=== PATIENT | female | born 1950 ===

== ENCOUNTER → 2022-01-05 16:06 | Outpatient (BNVA) | payer OTHER, SELFPAY | PROVIDERS: Visit Provider Nurse Practitioner Family | DX: G20 Parkinson's disease (principal) | CPT/HCPCS: 99212 ==

== ENCOUNTER → 2022-03-10 15:22 | Outpatient (BNVA) | payer OTHER, SELFPAY | PROVIDERS: PCP Internal Medicine; Visit Provider Nurse Practitioner Family | DX: G20 Parkinson's disease (principal); Z79.899 Other long term (current) drug therapy | CPT/HCPCS: 99212 ==

== ENCOUNTER → 2022-08-02 15:35 | Outpatient (BNVA) | payer OTHER, SELFPAY | PROVIDERS: PCP Internal Medicine; Visit Provider Nurse Practitioner Family | DX: G20 Parkinson's disease (principal); Z91.81 History of falling | CPT/HCPCS: 99212 ==

== ENCOUNTER → 2022-11-08 15:17 | Outpatient (BNVA) | payer OTHER, SELFPAY | PROVIDERS: PCP Internal Medicine; Visit Provider Nurse Practitioner Family | DX: G20 Parkinson's disease (principal); Z79.899 Other long term (current) drug therapy | CPT/HCPCS: 99212 ==

== ENCOUNTER → 2023-03-28 13:15 | Outpatient (BNVA) | payer OTHER, SELFPAY | PROVIDERS: PCP Internal Medicine; Visit Provider Nurse Practitioner Family | DX: G20 Parkinson's disease (principal); F02.82 Dementia in other diseases classified elsewhere, unspecified severity, with psychotic disturbance | CPT/HCPCS: 99212 ==

== ENCOUNTER 2023-08-01 14:55 | Outpatient (AMB) | payer MEDICARE, MEDICAID, SELFPAY ==
--- NOTE | 2023-08-01 14:58 | MHC.OFFVIS ---
Intake Vital Signs 08/01/23 15:03 Height 4 ft 11 in BP 124/68 Blood Pressure Location Rt brachial Position Sitting Pulse 87 Pulse Source Pulse Oximeter Pulse Oximetry (%) 100 Oxygen Delivery Method Room Air Intake Visit Reasons: 4m follow up Intake Note: Pt presents today for fup , daughter states mom loses train of thought easily and has been drooling more. Allergies citalopram Allergy (Unknown, Verified 08/01/23 15:06) Unknown pollen extracts Allergy (Unknown, Verified 08/01/23 15:06) Unknown Medication List - Last Reconciled 08/01/23 by MARIOLA De Paz acetaminophen 325 mg PO QID PRN bisacodyl (Dulcolax (bisacodyl)) 10 mg [place] DAILY PRN bupropion HCl 300 mg PO DAILY carbidopa-levodopa 36.25-145 mg ER (Rytary) 2 caps orally 5 times a day; divide evenly over waking hours cholecalciferol (vitamin D3) 1,250 mcg PO QWEEK ketotifen fumarate 0.025%(0.035%) 0 drps ophthalmic (eye) levothyroxine 112 mcg PO DAILY lidocaine 4% (Aspercreme (lidocaine)) 1 patch topical DAILY PRN lutein-zeaxanthin 25-5 mg (Ocuvite Lutein) caps PO DAILY magnesium hydroxide 1,200 mg PO DAILY PRN magnesium hydroxide (Milk of Magnesia) 30 mL PO DAILY PRN mirtazapine 15 mg PO BEDTIME olanzapine 7.5 mg PO BEDTIME olanzapine 5 mg PO DAILY pimavanserin (Nuplazid) 34 mg PO DAILY 30 days polyethylene glycol 3350 (Miralax) 17 grams PO DAILY potassium chloride ER 20 mEq PO DAILY rasagiline 1 mg PO DAILY sennosides (Senna Lax) 17.2 mg PO DAILY PRN temazepam 7.5 mg PO BEDTIME trazodone 50 mg PO BEDTIME HPI HPI Comments History of Present Illness Details 73-yr-old female presents for f/u visit, accompanied by her dtr. Pt continues to reside in a SNF. She still needs?assist w/ ADLs. Pt is having more drooling. States she has trouble swallowing, but denies coughing/choking. Dtr is needing to provide most meals- as pt either does not like the facility's food or thinks that the staff is tampering with her food. She is not moving as well, legs are heavier. Not walking very much. She has had some falls d/t trying to pick things up from the floor. She has reachers. She is still having hallucinations. She is having more memory issues, losing her train of thought more. Her mood is variable- had some increased depression/agittaion, per dtr, after her family viisited and left. Dtr thinks this is when her olanzapine does was changed from 5mg qam and 7.5mg qhs- to 15mg qam. She states she is not sleeping as well- able to fall asleep but not stay asleep. Her dtr has been trying to encourage her to participate in the activities- which pt is doing more. [facility] Surgical History No history of previous surgery Family History Father Cancer Mother Osteoporosis Social History Alcohol intake: never Patient Tobacco Use Status: Never used Tobacco Review of Systems Const All systems reviewed & are unremarkable except as noted in HPI and below Physical Exam Vital Signs: Last Vital Signs Pulse 87 08/01/23 15:03 BP 124/68 08/01/23 15:03 Pulse Ox 100 08/01/23 15:03 Oxygen Delivery Method Room Air 08/01/23 15:03 Const General: cooperative and no acute distress HEENT Head: Yes normocephalic Resp Effort & Inspection: normal respiratory effort and able to speak in complete sentences Neuro Other: Expression: Decreased expression and blink Voice: Soft Tremor: No tremor Tone: BUE rigidity Dyskinesia: None FFM: BUE bradykinesia Foot taps: BLE bradykinesia Gait: Sitting in w/c with stoop and tendency to lean to the left. Psych: Pleasant affect. Verbalized hallucinations- states she has scabs on her face and arms. 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 Continue Rasagiline 1mg qd. Trial adding Nourianz 20mg qd- in hopes this optimizes PD on-time (improve posture, reduce drooling, reduce cognitive s/s). Continue Zyprexa. Pt currently on 15mg qam- request PCP/psych at [facility] consider if this change has impacted pt's sleep difficulties. Continue Nuplazid 34mg qd. f/u in 3-4 months or sooner prn. Medications: New olanzapine 15 mg PO DAILY istradefylline (Nourianz) 20 mg PO DAILY 30 tabs 0RF Changed From mirtazapine 15 mg PO BEDTIME To mirtazapine 7.5 mg PO BEDTIME Coding Level of Care Code Est Pt Level 4 (99677) Diagnoses Parkinson's disease G20 Psychosis due to Parkinson's disease G20 Drooling K11.7 Falls W19.XXXA
[2023-08-01 15:03] VITALS: BP 124/68; PULSE 87; O2SAT 100
== END 2023-08-01 16:30 | disposition home or self-care (01) ==
PROVIDERS: Visit Provider Nurse Practitioner Family
DX: G20 Parkinson's disease (principal); K11.7 Disturbances of salivary secretion; R29.6 Repeated falls
CPT/HCPCS: 99214

== ENCOUNTER → 2023-08-01 14:55 | Outpatient (BNVA) | payer MEDICARE, MEDICAID, SELFPAY | PROVIDERS: Visit Provider Nurse Practitioner Family | DX: G20 Parkinson's disease (principal); K11.7 Disturbances of salivary secretion; Z91.81 History of falling | CPT/HCPCS: 99212 ==

== ENCOUNTER 2024-02-08 13:27 | Outpatient (AMB) | payer MEDICARE, MEDICAID, SELFPAY ==
--- NOTE | 2024-02-08 13:29 | MHC.OFFVIS ---
Intake Vital Signs 02/08/24 13:30 Height 4 ft 11 in Weight 126 lb BMI 25.4 BP 114/72 Blood Pressure Location Rt brachial Position Sitting Pulse 78 Pulse Source Pulse Oximeter Intake Visit Reasons: 4 mo f/up for Parkinson-Conf Intake Note: Patient presents for 4 month follow up. patient here for follow up still having hallicinations. Allergies citalopram Allergy (Unknown, Verified 02/08/24 13:35) Unknown pollen extracts Allergy (Unknown, Verified 02/08/24 13:35) Unknown Medication List - Last Reconciled 02/08/24 by MARIOLA De Paz acetaminophen 325 mg PO QID PRN bisacodyl (Dulcolax (bisacodyl)) 10 mg [place] DAILY PRN bupropion HCl 300 mg PO DAILY carbidopa-levodopa 36.25-145 mg ER (Rytary) 2 caps orally 5 times a day; divide evenly over waking hours cholecalciferol (vitamin D3) 1,250 mcg PO QWEEK istradefylline (Nourianz) 20 mg PO DAILY ketotifen fumarate 0.025%(0.035%) 0 drps ophthalmic (eye) levothyroxine 112 mcg PO DAILY lidocaine 4% (Aspercreme (lidocaine)) 1 patch topical DAILY PRN lutein-zeaxanthin 25-5 mg (Ocuvite Lutein) caps PO DAILY magnesium hydroxide 1,200 mg PO DAILY PRN magnesium hydroxide (Milk of Magnesia) 30 mL PO DAILY PRN mirtazapine 7.5 mg PO BEDTIME olanzapine 7.5 mg PO BEDTIME olanzapine 5 mg PO DAILY olanzapine 15 mg PO DAILY pimavanserin (Nuplazid) 34 mg PO DAILY 30 days polyethylene glycol 3350 (Miralax) 17 grams PO DAILY potassium chloride ER 20 mEq PO DAILY rasagiline 1 mg PO DAILY sennosides (Senna Lax) 17.2 mg PO DAILY PRN temazepam 7.5 mg PO BEDTIME trazodone 50 mg PO BEDTIME HPI HPI Comments History of Present Illness Details 74-yr-old female presents for f/u visit. Pt accompanied by her dtr. Pt is feeling better with addition of Nourianz. She still needs?assist w/ ADLs. Pt is having more drooling- it is bothersome. States she has trouble swallowing, but denies coughing/choking. Pt is eating some of the facility meals. Taking more ensure. Has snacks. Eating some meals from her dtr. She is moving a bit better. She had an interval fall. Is now doing PT and being fitted for a new w/c. Denies constipation. She is still having hallucinations- stable. She has some memory issues, losing her train of thought more. However, she is picking up more [place]. Her mood is better now- recently was feeling frustrated that her medications were not curing her PD and so did not want to take her meds- but this is better now. She states she is not always sleeping well- able to fall asleep but not stay asleep. Pt is participating a bit more in the activities at the [facility] Medical History (Updated 03/03/24 @ 19:52 by MARIOLA De Paz) Parkinson's disease Surgical History No history of previous surgery Family History Father Cancer Mother Osteoporosis Social History Alcohol intake: never Patient Tobacco Use Status: Never used Tobacco Review of Systems Const All systems reviewed & are unremarkable except as noted in HPI and below Physical Exam Vital Signs: Last Vital Signs Pulse 78 02/08/24 13:30 BP 114/72 02/08/24 13:30 BMI result Body Mass Index 25.4 Const General: cooperative and no acute distress Resp Effort & Inspection: normal respiratory effort and able to speak in complete sentences Neuro Other: General: Alert, responsive, oriented to person Expression: Decreased expression and blink Voice: Soft Drooling: Moderate degree of uncontrolled drooling from left side of mouth. Tremor: No tremor Tone: BUE rigidity Dyskinesia: None FFM: BUE bradykinesia Foot taps: BLE bradykinesia Gait: Sitting in w/c with stoop and tendency to lean to the left. Psych: Pleasant affect. Patient does not verbalize any hallucinations today. 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 Continue Rytary 36.25-145mg 2 caps 5 times a day (at 6:30am, 11am, 3:30pm, 7pm, and 11:30pm). Continue Rasagiline 1mg qd. Continue Nourianz 20mg qd Continue Zyprexa 15mg qd Continue Nuplazid 34mg qd. f/u in 4 months or sooner prn. Medications: Changed From istradefylline 20 mg PO DAILY 30 tabs 6RF To istradefylline (Nourianz) 20 mg PO DAILY 30 tabs 6RF 30 days Coding Level of Care Code Est Pt Level 4 (03238) Diagnoses Parkinson's disease without dyskinesia G20.A1 Psychosis due to Parkinson's disease G20 Drooling K11.7
[2024-02-08 13:30] VITALS: BP 114/72; PULSE 78; BMI 25.4
== END 2024-02-08 14:31 | disposition home or self-care (01) ==
LOC: HO.HSMS 13:27
PROVIDERS: PCP Internal Medicine; Visit Provider Nurse Practitioner Family
DX: G20.A1 Parkinson's disease without dyskinesia, without mention of fluctuations (principal); K11.7 Disturbances of salivary secretion
CPT/HCPCS: 99214

== ENCOUNTER → 2024-02-08 13:27 | Outpatient (BNVA) | payer MEDICARE, MEDICAID, SELFPAY | PROVIDERS: PCP Internal Medicine; Visit Provider Nurse Practitioner Family | DX: G20.A1 Parkinson's disease without dyskinesia, without mention of fluctuations (principal); F06.8 Other specified mental disorders due to known physiological condition; K11.7 Disturbances of salivary secretion; Z79.899 Other long term (current) drug therapy | CPT/HCPCS: 99212 ==

== ENCOUNTER 2024-04-29 10:56 | Outpatient (AMB) | payer MEDICARE, MEDICAID, SELFPAY ==
--- NOTE | 2024-04-29 11:02 | A.OFFVIS_ITS ---
Vital Signs 04/29/24 11:04 Height 4 ft 11 in Weight 125 lb BMI 25.2 BP 126/70 Blood Pressure Location Rt brachial Position Sitting Respiration 16 Pulse 80 Pulse Source Palpation Intake Visit Reasons: Botox - Confirmed Intake Note: Pt presents for first Botox injection for sialorrhea. Case Making Machine Operator Required: No Case Making Machine Operator Name: Talon- daughter Allergies citalopram Allergy (Unknown, Verified 04/29/24 11:03) Unknown pollen extracts Allergy (Unknown, Verified 04/29/24 11:03) Unknown Medication List - Last Reconciled 04/29/24 by Mary Henry MD acetaminophen 325 mg PO QID PRN bisacodyl (Dulcolax (bisacodyl)) 10 mg [place] DAILY PRN bupropion HCl XL 300 mg PO DAILY carbidopa-levodopa 36.25-145 mg ER (Rytary) 2 caps orally 5 times a day; divide evenly over waking hours cholecalciferol (vitamin D3) 1,250 mcg PO QWEEK istradefylline (Nourianz) 20 mg PO DAILY 30 days ketotifen fumarate 0.025%(0.035%) 0 drps ophthalmic (eye) levothyroxine 112 mcg PO DAILY lidocaine 4% (Aspercreme (lidocaine)) 1 patch topical DAILY PRN lutein-zeaxanthin 25-5 mg (Ocuvite Lutein) caps PO DAILY magnesium hydroxide 1,200 mg PO DAILY PRN magnesium hydroxide (Milk of Magnesia) 30 mL PO DAILY PRN mirtazapine 7.5 mg PO BEDTIME olanzapine 7.5 mg PO BEDTIME olanzapine 5 mg PO DAILY olanzapine 15 mg PO DAILY onabotulinumtoxinA (Botox) 100 units IM ONCE 12 weeks pimavanserin (Nuplazid) 34 mg PO DAILY 30 days polyethylene glycol 3350 (Miralax) 17 grams PO DAILY potassium chloride ER 20 mEq PO DAILY rasagiline 1 mg PO DAILY sennosides (Senna Lax) 17.2 mg PO DAILY PRN temazepam 7.5 mg PO BEDTIME trazodone 50 mg PO BEDTIME HPI Comments Details: 74y/o male comes for treatment of sialorrhea with botox Botulinum toxin type A Lot no [id number] Exp 04/2026 was diluted with 1 cc of normal saline at a concentration of 10 units in 0.1 cc. Side effects were discussed and an informed consent was obtained. Bilateral parotid glands 30 units each Bilateral Submandibular glands 20 units ecah Total uses 100 units PFSH Medical History Parkinson's disease Surgical History No history of previous surgery Family History Father Cancer Mother Osteoporosis Social History Alcohol intake: never Patient Tobacco Use Status: Never used Tobacco Physical Exam Vital Signs: Last Vital Signs Pulse 80 04/29/24 11:04 Resp 16 04/29/24 11:04 BP 126/70 04/29/24 11:04 BMI result Body Mass Index 25.2 Const General: cooperative and no acute distress Neuro Other: General: Alert, responsive, oriented to person Expression: Decreased expression and blink Voice: Soft Drooling: Moderate degree of uncontrolled drooling from left side of mouth. Tremor: No tremor Tone: BUE rigidity Dyskinesia: None FFM: BUE bradykinesia Foot taps: BLE bradykinesia Gait: Sitting in w/c with stoop and tendency to lean to the left. Psych: Pleasant affect. Patient does not verbalize any hallucinations today. Office Procedures Botulinum toxin Injection 98033 - Salivary Glands Procedure code (CPT) selection complete Office Meds onabotulinumtoxinA 100 unit solution for injection Performing Provider: Mary Henry MD Performing Location: [facility] Administered by: Mary Henry MD on 04/29/24 15:49 Dose Route Admin Location Dispensed Lot Number Expiration Date [facility] [employer] 100 unit subcut 100 units [id number] 04/27/26 6631-6648-42 [employer] Comments: see hpi Assessment & Plan Assessment & Plan (1) Parkinson's disease without dyskinesia: Code(s): G20.A1 - Parkinson's disease without dyskinesia, without mention of fluctuations Category: Medical (2) Sialorrhea: Code(s): K11.7 - Disturbances of salivary secretion Category: Medical Plan Patient tolerated the procedure well SHe will call with any side effects Orders: Orders AMB Botulinum toxin Injection Today K11.7 - Disturbances of salivary secretion Medications: New onabotulinumtoxinA 100 units subcut ONCE 1 ea 0RF sialorhea K11.7 - Disturbances of salivary secretion Coding Level of Care Code Est Pt Level 1 (21017) Diagnoses Parkinson's disease without dyskinesia G20.A1 Sialorrhea K11.7 CPT Codes Botox Injection - Botox1: 51668 - Salivary Glands ([id number])
[2024-04-29 11:04] VITALS: BP 126/70; PULSE 80; RESP 16; BMI 25.2
== END 2024-04-29 11:30 | disposition home or self-care (01) ==
PROVIDERS: PCP Internal Medicine; Visit Provider Psychiatry & Neurology Neurology
DX: K11.7 Disturbances of salivary secretion (principal)
CPT/HCPCS: 64611

== ENCOUNTER → 2024-04-29 10:56 | Outpatient (BNVA) | payer MEDICARE, MEDICAID, SELFPAY | PROVIDERS: PCP Internal Medicine; Visit Provider Psychiatry & Neurology Neurology | DX: G20.A1 Parkinson's disease without dyskinesia, without mention of fluctuations (principal); K11.7 Disturbances of salivary secretion | CPT/HCPCS: 64611; 99211; J0585 ==

== ENCOUNTER 2024-06-19 14:25 | Outpatient (AMB) | payer MEDICARE, MEDICAID, SELFPAY ==
[2024-06-19 14:37] VITALS: BP 118/82; PULSE 87; O2SAT 100
--- NOTE | 2024-06-19 14:37 | A.OFFVIS_ITS ---
Vital Signs 06/19/24 14:37 Height 4 ft 11 in BP 118/82 Blood Pressure Location Rt brachial Position Sitting Pulse 87 Pulse Source Pulse Oximeter Pulse Oximetry (%) 100 Oxygen Delivery Method Room Air Intake Visit Reasons: Follow up Parkinson - LVM Intake Note: Patient presents for follow up parkinsons. patient states she feel good some days. Allergies citalopram Allergy (Unknown, Verified 06/19/24 14:40) Unknown pollen extracts Allergy (Unknown, Verified 06/19/24 14:40) Unknown HPI Comments Details: 74-yr-old female presents for f/u visit, accompanied by her dtr. Pt denies any significant interval medical history changes. Pt has moved to a new memory care [facility]. The 1st few dyas went really well, but she has been having more hallucinations. Dtr notes pt is self-isolating more, tending to eat in her room alone. She still needs?assist w/ ADLs. Pt states her drooling is better since starting Botox for siallorhea. She was biting her cheek at times- not sure if r/t the Botox. Pt is eating some of the new facility meals. Taking more ensure. Has snacks. Eating some meals from her dtr. She is moving a bit better. Did work w/ PT and OT for a few weeks. Denies falls. Denies constipation. She states her memory is good. Dtr feels that pt has some STM lapses. She states her sleep varies- some nights good but other nights not as good- not sure why. Pt is not going to the new facility's activities. [facility] Medical History (Updated 04/29/24 @ 15:49 by Mary Henry MD) Sialorrhea Parkinson's disease Surgical History No history of previous surgery Family History Father Cancer Mother Osteoporosis Social History Alcohol intake: never Patient Tobacco Use Status: Never used Tobacco Review of Systems Const All systems reviewed & are unremarkable except as noted in HPI and below Physical Exam Vital Signs: Last Vital Signs Pulse 87 06/19/24 14:37 BP 118/82 06/19/24 14:37 Pulse Ox 100 06/19/24 14:37 Oxygen Delivery Method Room Air 06/19/24 14:37 Const General: cooperative and no acute distress Resp Effort & Inspection: normal respiratory effort and able to speak in complete sentences Neuro Other: General: Alert, responsive, oriented to person Expression: Decreased expression and blink. Mild left facial droop. Voice: Soft Drooling: No visible drooling Tremor: No tremor Tone: BUE rigidity Dyskinesia: None FFM: BUE bradykinesia Foot taps: BLE bradykinesia Gait: Sitting in w/c with stoop and tendency to lean to the left. Psych: Pleasant affect. Patient verbalizes mild hallucinations- feels there is something on her skin that is not there. 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 Encouraged her to eat meals in the common dining room but pt declines. Monitor hallucinations- likely increased d/t recent move, but if persists, will consider adjusting her antipsychotic tx regimen. Continue Botox, as pt has had good reduction in bothersome degree of sialorrhea. Continue Rytary 36.25-145mg 2 caps 5 times a day (at 6:30am, 11am, 3:30pm, 7pm, and 11:30pm). Continue Rasagiline 1mg qd. Continue Nourianz 20mg qd Continue Zyprexa 15mg qd Continue Nuplazid 34mg qd. f/u in 4-6 months or sooner prn. Coding Level of Care Code Est Pt Level 4 (02130) Diagnoses Parkinson's disease without dyskinesia G20.A1 Psychosis due to Parkinson's disease G20 Sialorrhea K11.7
== END 2024-06-19 15:52 | disposition home or self-care (01) ==
PROVIDERS: PCP Internal Medicine; Visit Provider Nurse Practitioner Family
DX: G20.A1 Parkinson's disease without dyskinesia, without mention of fluctuations (principal); K11.7 Disturbances of salivary secretion
CPT/HCPCS: 99214

== ENCOUNTER → 2024-06-19 14:25 | Outpatient (BNVA) | payer MEDICARE, MEDICAID, SELFPAY | PROVIDERS: PCP Internal Medicine; Visit Provider Nurse Practitioner Family | DX: G20.A1 Parkinson's disease without dyskinesia, without mention of fluctuations (principal); K11.7 Disturbances of salivary secretion | CPT/HCPCS: 99212 ==

== ENCOUNTER 2024-07-30 09:01 | Outpatient (AMB) | payer MEDICARE, MEDICAID, SELFPAY ==
--- NOTE | 2024-07-30 09:05 | A.OFFVIS_ITS ---
Vital Signs 07/30/24 09:06 Height 4 ft 11 in BP 116/68 Blood Pressure Location Rt brachial Position Sitting Respiration 16 Pulse 64 Pulse Source Palpation Intake Visit Reasons: Botox Intake Note: Pt presents tot he office for Botox injections for sialorrhea. Analytics Developer Required: Yes Analytics Developer Services: Analytics Developer Present Analytics Developer Name: rApita Wilson CMA Allergies citalopram Allergy (Unknown, Verified 07/30/24 09:05) Unknown pollen extracts Allergy (Unknown, Verified 07/30/24 09:05) Unknown Medication List - Last Reconciled 07/30/24 by Mary Henry MD acetaminophen 325 mg PO QID PRN bisacodyl (Dulcolax (bisacodyl)) 10 mg [place] DAILY PRN bupropion HCl XL 300 mg PO DAILY carbidopa-levodopa 36.25-145 mg ER (Rytary) 2 caps orally 5 times a day; divide evenly over waking hours cholecalciferol (vitamin D3) 1,250 mcg PO QWEEK istradefylline (Nourianz) 20 mg PO DAILY 30 days ketotifen fumarate 0.025%(0.035%) 0 drps ophthalmic (eye) levothyroxine 112 mcg PO DAILY lidocaine 4% (Aspercreme (lidocaine)) 1 patch topical DAILY PRN lutein-zeaxanthin 25-5 mg (Ocuvite Lutein) caps PO DAILY magnesium hydroxide 1,200 mg PO DAILY PRN magnesium hydroxide (Milk of Magnesia) 30 mL PO DAILY PRN mirtazapine 7.5 mg PO BEDTIME olanzapine 7.5 mg PO BEDTIME olanzapine 5 mg PO DAILY olanzapine 15 mg PO DAILY onabotulinumtoxinA (Botox) 100 units IM ONCE 12 weeks pimavanserin (Nuplazid) 34 mg PO DAILY 30 days polyethylene glycol 3350 (Miralax) 17 grams PO DAILY potassium chloride ER 20 mEq PO DAILY rasagiline 1 mg PO DAILY sennosides (Senna Lax) 17.2 mg PO DAILY PRN temazepam 7.5 mg PO BEDTIME trazodone 50 mg PO BEDTIME HPI Comments Details: 74y/o male comes for treatment of sialorrhea with botox Botulinum toxin type A Lot no [id number] Exp 08/2026 was diluted with 1 cc of normal saline at a concentration of 10 units in 0.1 cc. Side effects were discussed and an informed consent was obtained. Bilateral parotid glands 30 units each Bilateral Submandibular glands 20 units each Total uses 100 units [facility] Medical History Sialorrhea Parkinson's disease Surgical History No history of previous surgery Family History Father Cancer Mother Osteoporosis Social History Alcohol intake: never Patient Tobacco Use Status: Never used Tobacco Physical Exam Vital Signs: Last Vital Signs Pulse 64 07/30/24 09:06 Resp 16 07/30/24 09:06 BP 116/68 07/30/24 09:06 Const General: cooperative and no acute distress Neuro Other: General: Alert, responsive, oriented to person Expression: Decreased expression and blink Voice: Soft Drooling: Moderate degree of uncontrolled drooling from left side of mouth. Tremor: No tremor Tone: BUE rigidity Dyskinesia: None FFM: BUE bradykinesia Foot taps: BLE bradykinesia Gait: Sitting in w/c with stoop and tendency to lean to the left. Psych: Pleasant affect. Patient does not verbalize any hallucinations today. Office Procedures Botulinum toxin Injection 79078 - Salivary Glands Procedure code (CPT) selection complete Office Meds onabotulinumtoxinA 100 unit solution for injection Performing Provider: Mary Henry MD Performing Location: [facility] [place] [facility] Administered by: Mary Henry MD on 07/30/24 10:00 Dose Route Admin Location Dispensed Lot Number Expiration Date [facility] Phone Screener 100 unit subcut 100 units [id number] 08/27/26 6629-8279-26 [employer] Comments: see HPI Assessment & Plan Assessment & Plan (1) Sialorrhea: Code(s): K11.7 - Disturbances of salivary secretion Category: Medical Plan Patient tolerated the procedure well she will call with any side effects Orders: Orders AMB Botulinum toxin Injection Today K11.7 - Disturbances of salivary secretion Medications: New onabotulinumtoxinA 100 units subcut ONCE 1 ea 0RF sialorhea K11.7 - Disturbances of salivary secretion Coding Level of Care Code Est Pt Level 1 (96245) Diagnoses Sialorrhea K11.7 CPT Codes Botox Injection - Botox1: 96638 - Salivary Glands ([id number])
[2024-07-30 09:06] VITALS: BP 116/68; PULSE 64; RESP 16
== END 2024-07-30 09:55 | disposition home or self-care (01) ==
PROVIDERS: PCP Internal Medicine; Visit Provider Psychiatry & Neurology Neurology
DX: K11.7 Disturbances of salivary secretion (principal)
CPT/HCPCS: 64611

== ENCOUNTER → 2024-07-30 09:01 | Outpatient (BNVA) | payer MEDICARE, MEDICAID, SELFPAY | PROVIDERS: PCP Internal Medicine; Visit Provider Psychiatry & Neurology Neurology | DX: K11.7 Disturbances of salivary secretion (principal) | CPT/HCPCS: 64611; 99211; J0585 ==

== ENCOUNTER 2024-10-29 10:45 | Outpatient (AMB) | payer MEDICARE, MEDICAID, SELFPAY ==
--- NOTE | 2024-10-29 10:51 | A.OFFVIS_ITS ---
Vital Signs 10/29/24 10:52 Height 4 ft 11 in Intake Visit Reasons: Botox Intake Note: Patient presents for botox injection. Allergies citalopram Allergy (Unknown, Verified 10/29/24 10:58) Unknown pollen extracts Allergy (Unknown, Verified 10/29/24 10:58) Unknown Medication List - Last Reconciled 10/29/24 by Mary Henry MD acetaminophen 325 mg PO QID PRN bisacodyl (Dulcolax (bisacodyl)) 10 mg NV DAILY PRN bupropion HCl XL 300 mg PO DAILY carbidopa-levodopa 36.25-145 mg ER (Rytary) 2 caps orally 5 times a day; divide evenly over waking hours cholecalciferol (vitamin D3) 1,250 mcg PO QWEEK istradefylline (Nourianz) 20 mg PO DAILY 30 days ketotifen fumarate 0.025%(0.035%) 0 drps ophthalmic (eye) levothyroxine 112 mcg PO DAILY lidocaine 4% (Aspercreme (lidocaine)) 1 patch topical DAILY PRN lutein-zeaxanthin 25-5 mg (Ocuvite Lutein) caps PO DAILY magnesium hydroxide 1,200 mg PO DAILY PRN magnesium hydroxide (Milk of Magnesia) 30 mL PO DAILY PRN mirtazapine 7.5 mg PO BEDTIME olanzapine 7.5 mg PO BEDTIME olanzapine 5 mg PO DAILY olanzapine 15 mg PO DAILY onabotulinumtoxinA (Botox) 100 units IM ONCE 12 weeks pimavanserin (Nuplazid) 34 mg PO DAILY 30 days polyethylene glycol 3350 (Miralax) 17 grams PO DAILY potassium chloride ER 20 mEq PO DAILY rasagiline 1 mg PO DAILY sennosides (Senna Lax) 17.2 mg PO DAILY PRN temazepam 7.5 mg PO BEDTIME trazodone 50 mg PO BEDTIME HPI Comments Details: 74y/o male comes for treatment of sialorrhea with botox Botulinum toxin type A Lot no [id number] Exp 01/2027 was diluted with 1 cc of normal saline at a concentration of 10 units in 0.1 cc. Side effects were discussed and an informed consent was obtained. Bilateral parotid glands 30 units each Bilateral Submandibular glands 20 units each Total uses 100 units PFSH Medical History Sialorrhea Parkinson's disease Surgical History No history of previous surgery Family History Father Cancer Mother Osteoporosis Social History Alcohol intake: never Patient Tobacco Use Status: Never used Tobacco Physical Exam Const General: cooperative and no acute distress Neuro Other: General: Alert, responsive, oriented to person Expression: Decreased expression and blink Voice: Soft Drooling: Moderate degree of uncontrolled drooling from left side of mouth. Tremor: No tremor Tone: BUE rigidity Dyskinesia: None FFM: BUE bradykinesia Foot taps: BLE bradykinesia Gait: Sitting in w/c with stoop and tendency to lean to the left. Psych: Pleasant affect. Patient does not verbalize any hallucinations today. Office Procedures Botulinum toxin Injection 41303 - Salivary Glands Procedure code (CPT) selection complete Office Meds onabotulinumtoxinA 100 unit solution for injection Performing Provider: Mary Henry MD Performing Location: [facility] Administered by: Mary Henry MD on 10/29/24 11:18 Dose Route Admin Location Dispensed Lot Number Expiration Date [facility] Electronic Security Technician 100 unit IM 100 units [id number] ALLERGAN/BOTOX Comments: see hpi Assessment & Plan Assessment & Plan (1) Sialorrhea: Code(s): K11.7 - Disturbances of salivary secretion Category: Medical Plan Patient tolerated the procedure well she will call with any side effects Orders: Orders AMB Botulinum toxin Injection Today K11.7 - Disturbances of salivary secretion Medications: New onabotulinumtoxinA 100 units IM ONCE 1 ea 0RF sialorrhea K11.7 - Disturbances of salivary secretion Coding Level of Care Code Est Pt Level 1 (18859) Diagnoses Sialorrhea K11.7 CPT Codes Botox Injection - Botox1: 96099 - Salivary Glands ([id number])
== END 2024-10-29 12:07 | disposition home or self-care (01) ==
PROVIDERS: PCP Internal Medicine; Visit Provider Psychiatry & Neurology Neurology
DX: K11.7 Disturbances of salivary secretion (principal)
CPT/HCPCS: 64611

== ENCOUNTER → 2024-10-29 10:45 | Outpatient (BNVA) | payer MEDICARE, MEDICAID, SELFPAY | PROVIDERS: PCP Internal Medicine; Visit Provider Psychiatry & Neurology Neurology | DX: K11.7 Disturbances of salivary secretion (principal) | CPT/HCPCS: 64611; 99211; J0585 ==

== ENCOUNTER 2025-01-08 14:47 | Outpatient (AMB) | payer MEDICARE, MEDICAID, SELFPAY ==
--- NOTE | 2025-01-08 14:51 | A.OFFVIS_ITS ---
Vital Signs 01/08/25 15:05 Height 4 ft 11 in BP 120/84 Blood Pressure Location Lt brachial Position Sitting Pulse 81 Pulse Source Pulse Oximeter Pulse Oximetry (%) 99 Oxygen Delivery Method Room Air Comment Unable to obtain weight Intake Visit Reasons: Follow Up Firebrick Layer Helper Required: No Firebrick Layer Helper Services: Firebrick Layer Helper Offered & Declined Accompanied by: Daughter Allergies citalopram Allergy (Unknown, Verified 01/08/25 14:57) Unknown pollen extracts Allergy (Unknown, Verified 01/08/25 14:57) Unknown Medication List - Last Reconciled 01/08/25 by MARIOLA De Paz acetaminophen 325 mg PO QID PRN bisacodyl (Dulcolax (bisacodyl)) 10 mg OR DAILY PRN bupropion HCl XL 300 mg PO DAILY carbidopa-levodopa 36.25-145 mg ER (Rytary) 2 caps orally 5 times a day; divide evenly over waking hours cholecalciferol (vitamin D3) 1,250 mcg PO QWEEK istradefylline (Nourianz) 20 mg PO DAILY 30 days ketotifen fumarate 0.025%(0.035%) 0 drps ophthalmic (eye) levothyroxine 112 mcg PO DAILY lidocaine 4% (Aspercreme (lidocaine)) 1 patch topical DAILY PRN lutein-zeaxanthin 25-5 mg (Ocuvite Lutein) caps PO DAILY magnesium hydroxide 1,200 mg PO DAILY PRN magnesium hydroxide (Milk of Magnesia) 30 mL PO DAILY PRN mirtazapine 7.5 mg PO BEDTIME olanzapine 7.5 mg PO BEDTIME olanzapine 5 mg PO DAILY olanzapine 15 mg PO DAILY onabotulinumtoxinA (Botox) 100 units IM ONCE 12 weeks pimavanserin (Nuplazid) 34 mg PO DAILY 30 days polyethylene glycol 3350 (Miralax) 17 grams PO DAILY potassium chloride ER 20 mEq PO DAILY rasagiline 1 mg PO DAILY sennosides (Senna Lax) 17.2 mg PO DAILY PRN temazepam 7.5 mg PO BEDTIME trazodone 50 mg PO BEDTIME HPI Comments Details: 75-yr-old female presents for f/u visit of Parkinson's, accompanied by her dtr. Pt denies any significant interval medical history changes. Daughter is wondering if Parkinson's can be genetic- she has noticed some possible REM sleep behaviors in herself. Patient and patient's daughter report the patient tends to have good days and bad days. Pt continues to live in SNF. She still needs?assist w/ ADLs. Pt states her drooling is better since starting Botox for siallorhea, but now she is prone to dry mouth. Pt is eating some of the new facility meals, and is eating snacks that family brings in. Eating some meals from her other dtr. She feels slower, but again this varies day by day.. She had a fall about a month ago- tries to self-transfer at x's. Denies constipation. Daughter reports she was having worsening mood, and her ? Olanzapine was increased. Hallucinations are stable. They were a bit worse, when she had more exposure to other residents who were watching certain shows last movies, and patient was thinking they were real. She states her memory varies- day to day. She is going to have a new roommate, which will hopefully be a better fit for her. Dtr feels that pt has some STM lapses. She states her sleep varies- some nights good but other nights not as good- not sure why. Pt is going to some of the activities offered at SNF, but she continues to eat in her room. She states she can walk about half way down the hallway with therapy staff. [facility] Medical History Sialorrhea Parkinson's disease Surgical History No history of previous surgery Family History Father Cancer Mother Osteoporosis Social History Alcohol intake: never Patient Tobacco Use Status: Never used Tobacco Physical Exam Vital Signs: Last Vital Signs Pulse 81 01/08/25 15:05 BP 120/84 01/08/25 15:05 Pulse Ox 99 01/08/25 15:05 Oxygen Delivery Method Room Air 01/08/25 15:05 Const General: cooperative and no acute distress Resp Effort & Inspection: normal respiratory effort and able to speak in complete sentences Neuro Other: General: Alert, responsive, oriented to person Expression: Decreased expression and blink. Mild left facial droop. Voice: Soft Drooling: No visible drooling Tremor: No tremor Tone: BUE rigidity Dyskinesia: None FFM: BUE bradykinesia Foot taps: BLE bradykinesia Gait: Sitting upright in w/c. Psych: Pleasant affect. Patient did not verbalize hallucination today. 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 Continue Botox, as pt has had good reduction in bothersome degree of sialorrhea, however we will postpone follow-up injection by 1 month, to minimize risk for worsening dry mouth. Continue Rytary 36.25-145mg 2 caps 5 times a day (at 6:30am, 11am, 3:30pm, 7pm, and 11:30pm). Continue Rasagiline 1mg qd. Continue Nourianz 20mg qd Continue Olanzapine 12.5mg qd Continue Nuplazid 34mg qd. Encourage patient to attend activities. Continue walking program with long term staff/therapist. f/u in 6 months or sooner prn. Medications: New olanzapine 12.5 mg PO BEDTIME Coding Level of Care Code Est Pt Level 4 (20121) Complex EM visit Add On G2211 Diagnoses Parkinson's disease without dyskinesia G20.A1 Psychosis due to Parkinson's disease G20 Sialorrhea K11.7
[2025-01-08 15:05] VITALS: BP 120/84; PULSE 81; O2SAT 99
--- OUTSIDE RECORDS SUMMARY | 2025-01-08 16:01 | XMS_ITS | Encounter Summary ---
Author Organization [employer] Address [address] [place] [address] Care Team Providers Care Technical Maintenance Technician Name Role Phone Amber Lovelace MD Primary Care Provid er Encounter Details Date Type Department Care Team (Late st Contact Info) Description 10/08/2024 Lab Requisition [facility] - Main Lab [address] [facility] [place] [address] Aroldo Dejesus MD [address] [place] [id number] Other fatigue Social History Tobacco Use Types Packs/Day Years Used Date Smoking Tobacco: Never Assessed Comments Unknown Sex and Gender Information Value Date Recorded Sex Assigned at Not on file Legal Sex Female 11:15 AM EST Gender Identity Not on file Sexual Orientation Not on file documented as of this encounter Plan of Treatment Not on file documented as of this encounter Procedures Procedure Name Priority Date/Time Associated Diagnosis Comments THYROID STIMULATING HORMONE WITH REFLEX TO FREE T4 AND FREE T3 Routine 10/08/2024 9:10 AM EST Other fatigue FREE THYROXINE WITH REFLEX TO FREE TRIIODOTHYRONINE Routine 10/08/2024 9:10 AM EST Other fatigue COMPLETE BLOOD COUNT Routine 10/08/2024 9:10 AM EST Other fatigue TRIIODOTHYRONINE FREE Routine 10/08/2024 9:10 AM EST Other fatigue MAGNESIUM Routine 10/08/2024 9:10 AM EST Other fatigue AMMONIA Routine 10/08/2024 9:10 AM EST Other fatigue COMPREHENSIVE METABOLIC PANEL Routine 10/08/2024 9:10 AM EST Other fatigue documented in this encounter Results * Triiodothyronine free (10/08/2024 9:10 AM EST) T3, Free 230 230 - 420 pcg/dL LAB CHEMISTRY METHOD 10/08/2024 11:19 AM EST [facility] Blood Venous blood specimen / Unknown Venipuncture / Unknown 10/08/2024 9:10 AM EST 10/08/2024 9:37 AM EST us Aroldo Dejesus MD LAB BLOOD ORDERABLES Final Resu lt Performing Organization Address [facility]/ZIP Co de Phone Number [facility] [address] [place] [address], [place] [phone] * Free thyroxine with reflex to free triiodothyronine (10/08/2024 9:10 AM EST) Free T4 1.01 0.70 - 1.80 ng/dL LAB CHEMISTRY METHOD 10/08/2024 10:51 AM EST [facility] Blood Venous blood specimen / Unknown Venipuncture / Unknown 10/08/2024 9:10 AM EST 10/08/2024 9:37 AM EST us Aroldo Dejesus MD LAB BLOOD ORDERABLES Final Resu lt Performing Organization Address City/[facility]/ZIP Co de Phone Number [facility] [address] [place] [address], [place] [phone] * Ammonia (10/08/2024 9:10 AM EST) Ammonia 23 11 - 35 mcmol/L LAB CHEMISTRY METHOD 10/08/2024 10:15 AM EST [facility] Blood Venous blood specimen / Unknown Venipuncture / Unknown 10/08/2024 9:10 AM EST 10/08/2024 9:37 AM EST us Aroldo Dejesus MD LAB BLOOD ORDERABLES Final Resu lt Performing Organization Address City/[facility]/ZIP Co de Phone Number [facility] [address] [place] [address], [place] [phone] * Magnesium (10/08/2024 9:10 AM EST) Magnesium 2.3 1.9 - 2.6 mg/dL LAB CHEMISTRY METHOD 10/08/2024 10:18 AM EST [facility] Blood Venous blood specimen / Unknown Venipuncture / Unknown 10/08/2024 9:10 AM EST 10/08/2024 9:37 AM EST us Aroldo Dejesus MD LAB BLOOD ORDERABLES Final Resu lt Performing Organization Address [facility] Co de Phone Number [facility] [address] [place] [address], [place] [phone] * (ABNORMAL) Thyroid stimulating hormone with reflex to free t4 and free t3 (10/08/2024 9:10 AM EST) [facility] TSH 7.99(H) 0.40 - 4.00 mcIU/mL LAB CHEMISTRY METHOD 10/08/2024 10:25 AM EST [facility] Blood Venous blood specimen / Unknown Venipuncture / Unknown 10/08/2024 9:10 AM EST 10/08/2024 9:37 AM EST us Aroldo Dejesus MD LAB BLOOD ORDERABLES Final Resu lt Performing Organization Address City/[facility]/ZIP Co de Phone Number [facility] [address] [place] [address], [place] [phone] * (ABNORMAL) Comprehensive metabolic panel (10/08/2024 9:10 AM EST) Pathologist [facility] Sodium 142 133 - 145 mmol/L LAB CHEMISTRY METHOD 10/08/2024 10:41 AM [facility] Potassium 4.1 3.5 - 5.5 mmol/L LAB CHEMISTRY METHOD 10/08/2024 10:41 AM [facility] Chloride 110 96 - 110 mmol/L LAB CHEMISTRY METHOD 10/08/2024 10:41 AM [facility] CO2 30 21 - 32 mmol/L LAB CHEMISTRY METHOD 10/08/2024 10:41 AM [facility] Anion Gap 2(L) 3 - 11 LAB CHEMISTRY METHOD 10/08/2024 10:41 AM [facility] Glucose 84 70 - 100 mg/dL LAB CHEMISTRY METHOD 10/08/2024 10:41 AM [facility] BUN 23 5 - 25 mg/dL LAB CHEMISTRY METHOD 10/08/2024 10:41 AM [facility] Creatinine 1.08 0.50 - 1.10 mg/dL LAB CHEMISTRY METHOD 10/08/2024 10:41 AM [facility] eGFR 54(L) >=60 mL/min/1. 73m2 LAB CHEMISTRY METHOD 10/08/2024 10:41 AM [facility] Comment:Calculation based on the??Chronic Kidney Disease Epidemiology Collaboration (CKD-EPI) equation refit??without adjustment for race. BUN/Creatinine Ratio 21.3 LAB CHEMISTRY METHOD 10/08/2024 10:41 AM [facility] Calcium 9.0 8.5 - 10.5 mg/dL LAB CHEMISTRY METHOD 10/08/2024 10:41 AM [facility] AST (SGOT) 12 10 - 42 unit/L LAB CHEMISTRY METHOD 10/08/2024 10:41 AM [facility] ALT (SGPT) <6(L) 10 - 60 unit/L LAB CHEMISTRY METHOD 10/08/2024 10:41 AM [facility] Alkaline Phosphatase 63 42 - 121 unit/L LAB CHEMISTRY METHOD 10/08/2024 10:41 AM [facility] Total Protein 5.7(L) 6.0 - 8.0 g/dL LAB CHEMISTRY METHOD 10/08/2024 10:41 AM [facility] Albumin 3.3 3.2 - 5.0 g/dL LAB CHEMISTRY METHOD 10/08/2024 10:41 AM [facility] Total Bilirubin 0.5 0.0 - 1.4 mg/dL LAB CHEMISTRY METHOD 10/08/2024 10:41 AM [facility] Blood Venous blood specimen / Unknown Venipuncture / Unknown 10/08/2024 9:10 AM EST 10/08/2024 9:37 AM EST us Aroldo Dejesus MD LAB BLOOD ORDERABLES Final Resu lt [facility] [address] [place] [address], * (ABNORMAL) Complete blood count (10/08/2024 9:10 AM EST) WBC 7.7 4.8 - 10.8 K/mcL LAB HEMETOLOGY METHOD 10/08/2024 10:31 AM [facility] RBC 3.90 3.80 - 4.80 M/mcL LAB HEMETOLOGY METHOD 10/08/2024 10:31 AM [facility] Hemoglobin 11.6 11.5 - 16.0 g/dL LAB HEMETOLOGY METHOD 10/08/2024 10:31 AM [facility] Hematocrit 37.6 35.0 - 47.0 % LAB HEMETOLOGY METHOD 10/08/2024 10:31 AM [facility] MCV 96.4 79.0 - 98.0 FL LAB HEMETOLOGY METHOD 10/08/2024 10:31 AM [facility] MCH 29.7 27.0 - 32.0 pcg LAB HEMETOLOGY METHOD 10/08/2024 10:31 AM EST [facility] MCHC 30.9(L) 32.0 - 37.0 g/dL LAB HEMETOLOGY METHOD 10/08/2024 10:31 AM [facility] RDW 12.9 11.0 - 15.0 % LAB HEMETOLOGY METHOD 10/08/2024 10:31 AM [facility] Platelets 239 130 - 400 K/mcL LAB HEMETOLOGY METHOD 10/08/2024 10:31 AM [facility] MPV 9.6 7.0 - 11.0 FL LAB HEMETOLOGY METHOD 10/08/2024 10:31 AM [facility] NRBC 0.0 <1.0 % LAB HEMETOLOGY METHOD 10/08/2024 10:31 AM [facility] NRBC Absolute 0.00 <0.10 K/mcL LAB HEMETOLOGY METHOD 10/08/2024 10:31 AM [facility] Blood Venous blood specimen / Unknown Venipuncture / Unknown 10/08/2024 9:10 AM EST 10/08/2024 9:37 AM EST us Aroldo Dejesus MD LAB BLOOD ORDERABLES Final Resu lt [facility] [address] [place] [address], documented in this encounter Visit Diagnoses Diagnosis Other fatigue documented in this encounter Care Teams Technical Maintenance Technician Relationship Specialty Start Date End Date Amber Lovelace MD [address] [facility] [address] [place] [address] PCP - General Obstetrics and Gynecology 10/11/24 documented as of this encounter
--- OUTSIDE RECORDS SUMMARY | 2025-01-08 16:01 | XMS_ITS | Clinical Summary ---
Author Organization [address] [facility] Address [address] [place] [address] Phone Care Team Providers Care Plant Engineering Manager Name Role Phone Amber Lovelace MD Primary Care Provid er Encounters Date Type Department Care Team Description 12/25/2024 Lab Requisition [facility] Lab [address] [place] [phone] Aroldo Dejesus MD Unspecified dementia, unspecified severity, without behavioral disturbance, psychotic disturbance, mood disturbance, and anxiety (CMS/HCC); Anemia, unspecified 11/26/2024 Lab Requisition [facility] Lab [address] [place] [phone] Aroldo Dejesus MD Parkinsonism, unspecified (CMS/HCC) 10/08/2024 Lab Requisition [facility] Lab [address] [place] [phone] Aroldo Dejesus MD Other fatigue from Last 3 Months Social History Tobacco Use Types Packs/Day Years Used Date Smoking Tobacco: Never Assessed Comments Unknown Sex and Gender Information Value Date Recorded Sex Assigned at Not on file Legal Sex Female 11:15 AM EST Gender Identity Not on file Sexual Orientation Not on file Plan of Treatment Health Maintenance Due Date Last Done Comments DTaP,Tdap,and Td Vaccines (1 - Tdap) 1968 Zoster Vaccines (1 of 2) 1999 Pneumococcal Vaccine: 50+ Ye ars (1 of 1 - PCV) 2014 Colorectal Cancer Screening: Colonoscopy 10/25/2022 Depression Screening 10/25/2022 Falls Risk Assessment 10/25/2022 Hepatitis C Screening 10/25/2022 Medicare Annual Wellness Visit 10/25/2022 Osteoporosis Screening (Bone Density Screening) 10/25/2022 Social Influencers of Health Screening 10/25/2022 RSV Immunization Patients 60 + Years Old (1 - 1-dose 75+ series) 2024 COVID-19 Vaccine ( - 2023-2 5 season) 2024 Influenza Vaccine (#1) 2024 HIB Vaccines Aged Out No longer eligi ble based on patient's age to complete this topic HPV Vaccines Aged Out No longer eligi ble based on patient's age to complete this topic Hepatitis A Vaccines Aged Out No long er eligible based on patient's age to complete this topic Hepatitis B Vaccines Aged Out No long er eligible based on patient's age to complete this topic IPV Vaccines Aged Out No longer eligi ble based on patient's age to complete this topic MMR Vaccines Aged Out No longer eligi ble based on patient's age to complete this topic Meningococcal ACWY Vaccine Aged Out N o longer eligible based on patient's age to complete this topic RSV Immunization Patients Un rosetta 20 months Aged Out No longer eligible b ased on patient's age to complete this topic Varicella Vaccines Aged Out No longer eligible based on patient's age to complete this topic Procedures Procedure Name Priority Date/Time Associated Diagnosis Comments CBC WITH AUTO DIFFERENTIAL Routine 12/25/2024 2:14 PM EST Unspecified dementia, unspecified severity, without behavioral disturbance, psychotic disturbance, mood disturbance, and anxiety (CMS/HCC) Anemia, unspecified CBC AND DIFFERENTIAL Routine 12/25/2024 2:14 PM EST Unspecified dementia, unspecified severity, without behavioral disturbance, psychotic disturbance, mood disturbance, and anxiety (CMS/HCC) Anemia, unspecified BASIC METABOLIC PANEL Routine 11/28/2024 7:22 AM EST Parkinsonism, unspecified (CMS/HCC) COMPLETE BLOOD COUNT Routine 11/28/2024 7:22 AM EST Parkinsonism, unspecified (CMS/HCC) TRIIODOTHYRONINE FREE Routine 10/08/2024 9:10 AM EST Other fatigue FREE THYROXINE WITH REFLEX TO FREE TRIIODOTHYRONINE Routine 10/08/2024 9:10 AM EST Other fatigue AMMONIA Routine 10/08/2024 9:10 AM EST Other fatigue MAGNESIUM Routine 10/08/2024 9:10 AM EST Other fatigue THYROID STIMULATING HORMONE WITH REFLEX TO FREE T4 AND FREE T3 Routine 10/08/2024 9:10 AM EST Other fatigue COMPREHENSIVE METABOLIC PANEL Routine 10/08/2024 9:10 AM EST Other fatigue COMPLETE BLOOD COUNT Routine 10/08/2024 9:10 AM EST Other fatigue from Last 3 Months Results * (ABNORMAL) CBC auto differential (12/25/2024 2:14 PM EST) WBC 5.2 4.8 - 10.8 K/mcL LAB HEMETOLOGY METHOD 12/25/2024 2:50 PM [facility] LAB RBC 4.00 3.80 - 4.80 M/mcL LAB HEMETOLOGY METHOD 12/25/2024 2:50 PM [facility] LAB Hemoglobin 11.7 11.5 - 16.0 g/dL LAB HEMETOLOGY METHOD 12/25/2024 2:50 PM [facility] LAB Hematocrit 39.3 35.0 - 47.0 % LAB HEMETOLOGY METHOD 12/25/2024 2:50 PM [facility] LAB MCV 97.8 79.0 - 98.0 FL LAB HEMETOLOGY METHOD 12/25/2024 2:50 PM [facility] LAB MCH 29.1 27.0 - 32.0 pcg LAB HEMETOLOGY METHOD 12/25/2024 2:50 PM [facility] LAB MCHC 29.8(L) 32.0 - 37.0 g/dL LAB HEMETOLOGY METHOD 12/25/2024 2:50 PM [facility] RDW 12.9 11.0 - 15.0 % LAB HEMETOLOGY METHOD 12/25/2024 2:50 PM [facility] LAB Platelets 244 130 - 400 K/mcL LAB HEMETOLOGY METHOD 12/25/2024 2:50 PM [facility] MPV 9.6 7.0 - 11.0 FL LAB HEMETOLOGY METHOD 12/25/2024 2:50 PM [facility] NRBC 0.0 <1.0 % LAB HEMETOLOGY METHOD 12/25/2024 2:50 PM [facility] LAB NRBC Absolute 0.00 <0.10 K/mcL LAB HEMETOLOGY METHOD 12/25/2024 2:50 PM [facility] Neutrophils Relative 54.9 % LAB HEMETOLOGY METHOD 12/25/2024 2:50 PM [facility] Lymphocytes Relative 35.3 % LAB HEMETOLOGY METHOD 12/25/2024 2:50 PM [facility] Monocytes Relative 7.8 % LAB HEMETOLOGY METHOD 12/25/2024 2:50 PM [facility] Eosinophils Relative 1.4 % LAB HEMETOLOGY METHOD 12/25/2024 2:50 PM [facility] Basophils Relative 0.4 % LAB HEMETOLOGY METHOD 12/25/2024 2:50 PM [facility] Immature Granulocytes Relative 0.2 % LAB HEMETOLOGY METHOD 12/25/2024 2:50 PM [facility] Neutrophils Absolute 2.83 1.50 - 7.00 K/mcL LAB HEMETOLOGY METHOD 12/25/2024 2:50 PM [facility] Lymphocytes Absolute 1.82 1.00 - 5.00 K/mcL LAB HEMETOLOGY METHOD 12/25/2024 2:50 PM [facility] Monocytes Absolute 0.40 0.20 - 1.00 K/mcL LAB HEMETOLOGY METHOD 12/25/2024 2:50 PM EST [facility] Eosinophils Absolute 0.07 0.00 - 0.50 K/mcL LAB HEMETOLOGY METHOD 12/25/2024 2:50 PM EST [facility] Basophils Absolute 0.02 0.00 - 0.20 K/mcL LAB HEMETOLOGY METHOD 12/25/2024 2:50 PM EST [facility] Immature Granulocytes Absolute 0.01 0.00 - 0.03 K/mcL LAB HEMETOLOGY METHOD 12/25/2024 2:50 PM EST [facility] Blood Venous blood specimen / Unknown Venipuncture / Unknown 12/25/2024 2:14 PM EST 12/25/2024 2:40 PM EST us Aroldo Dejesus MD LAB BLOOD ORDERABLES Final Resu lt [facility] [address] [place] [address], [place] [phone] * (ABNORMAL) Complete blood count (11/28/2024 7:22 AM EST) Only the most recent of2 resultswithin the time period is included. WBC 6.1 4.8 - 10.8 K/mcL LAB HEMETOLOGY METHOD 11/28/2024 10:51 AM [facility] RBC 3.90 3.80 - 4.80 M/mcL LAB HEMETOLOGY METHOD 11/28/2024 10:51 AM [facility] LAB Hemoglobin 11.6 11.5 - 16.0 g/dL LAB HEMETOLOGY METHOD 11/28/2024 10:51 AM [facility] LAB Hematocrit 38.8 35.0 - 47.0 % LAB HEMETOLOGY METHOD 11/28/2024 10:51 AM [facility] LAB MCV 98.5(H) 79.0 - 98.0 FL LAB HEMETOLOGY METHOD 11/28/2024 10:51 AM EST [facility] LAB MCH 29.4 27.0 - 32.0 pcg LAB HEMETOLOGY METHOD 11/28/2024 10:51 AM EST [facility] LAB MCHC 29.9(L) 32.0 - 37.0 g/dL LAB HEMETOLOGY METHOD 11/28/2024 10:51 AM EST [facility] LAB RDW 13.5 11.0 - 15.0 % LAB HEMETOLOGY METHOD 11/28/2024 10:51 AM EST [facility] LAB Platelets 260 130 - 400 K/mcL LAB HEMETOLOGY METHOD 11/28/2024 10:51 AM EST [facility] MPV 9.5 7.0 - 11.0 FL LAB HEMETOLOGY METHOD 11/28/2024 10:51 AM EST [facility] NRBC 0.0 <1.0 % LAB HEMETOLOGY METHOD 11/28/2024 10:51 AM EST [facility] NRBC Absolute 0.00 <0.10 K/mcL LAB HEMETOLOGY METHOD 11/28/2024 10:51 AM [facility] Blood Venous blood specimen / Unknown Venipuncture / Unknown 11/28/2024 7:22 AM EST 11/28/2024 10:01 AM EST us Aroldo Dejesus MD LAB BLOOD ORDERABLES Final Resu lt [facility] [address] [place] [address], * (ABNORMAL) Basic metabolic panel (11/28/2024 7:22 AM EST) Sodium 138 133 - 145 mmol/L LAB CHEMISTRY METHOD 11/28/2024 11:23 AM EST [facility] Potassium 4.4 3.5 - 5.5 mmol/L LAB CHEMISTRY METHOD 11/28/2024 11:23 AM [facility] Chloride 106 96 - 110 mmol/L LAB CHEMISTRY METHOD 11/28/2024 11:23 AM [facility] CO2 30 21 - 32 mmol/L LAB CHEMISTRY METHOD 11/28/2024 11:23 AM [facility] Anion Gap 2(L) 3 - 11 LAB CHEMISTRY METHOD 11/28/2024 11:23 AM [facility] Glucose 77 70 - 100 mg/dL LAB CHEMISTRY METHOD 11/28/2024 11:23 AM [facility] BUN 15 5 - 25 mg/dL LAB CHEMISTRY METHOD 11/28/2024 11:23 AM [facility] Creatinine 0.86 0.50 - 1.10 mg/dL LAB CHEMISTRY METHOD 11/28/2024 11:23 AM [facility] LAB eGFR 71 >=60 mL/min/1. 73m2 LAB CHEMISTRY METHOD 11/28/2024 11:23 AM [facility] LAB Comment:Calculation based on the??Chronic Kidney Disease Epidemiology Collaboration (CKD-EPI) equation refit??without adjustment for race. BUN/Creatinine Ratio 17.4 LAB CHEMISTRY METHOD 11/28/2024 11:23 AM [facility] Calcium 8.2(L) 8.5 - 10.5 mg/dL LAB CHEMISTRY METHOD 11/28/2024 11:23 AM [facility] Blood Venous blood specimen / Unknown Venipuncture / Unknown 11/28/2024 7:22 AM EST 11/28/2024 10:01 AM EST us Aroldo Dejesus MD LAB BLOOD ORDERABLES Final Resu lt [facility] [address] [place] [address], * (ABNORMAL) Thyroid stimulating hormone with reflex to free t4 and free t3 (10/08/2024 9:10 AM EST) TSH 7.99(H) 0.40 - 4.00 mcIU/mL LAB CHEMISTRY METHOD 10/08/2024 10:25 AM EST [facility] Blood Venous blood specimen / Unknown Venipuncture / Unknown 10/08/2024 9:10 AM EST 10/08/2024 9:37 AM EST Aroldo Dejesus MD LAB BLOOD ORDERABLES Final Resu lt Performing Organization Address City/[facility]/ZIP Co de Phone Number [facility] [address] [place] [address], [place] [phone] * Free thyroxine with reflex to free triiodothyronine (10/08/2024 9:10 AM EST) Free T4 1.01 0.70 - 1.80 ng/dL LAB CHEMISTRY METHOD 10/08/2024 10:51 AM EST [facility] Blood Venous blood specimen / Unknown Venipuncture / Unknown 10/08/2024 9:10 AM EST 10/08/2024 9:37 AM EST us Aroldo Dejesus MD LAB BLOOD ORDERABLES Final Resu lt [facility] [address] [place] [address], [place] [phone] * Triiodothyronine free (10/08/2024 9:10 AM EST) T3, Free 230 230 - 420 pcg/dL LAB CHEMISTRY METHOD 10/08/2024 11:19 AM EST [facility] Blood Venous blood specimen / Unknown Venipuncture / Unknown 10/08/2024 9:10 AM EST 10/08/2024 9:37 AM EST us Aroldo Dejesus MD LAB BLOOD ORDERABLES Final Resu lt Performing Organization Address [facility]/ZIP Co de Phone Number [facility] [address] [place] [address], [place] [phone] * Magnesium (10/08/2024 9:10 AM EST) Magnesium 2.3 1.9 - 2.6 mg/dL LAB CHEMISTRY METHOD 10/08/2024 10:18 AM EST [facility] Blood Venous blood specimen / Unknown Venipuncture / Unknown 10/08/2024 9:10 AM EST 10/08/2024 9:37 AM EST us Aroldo Dejesus MD LAB BLOOD ORDERABLES Final Resu lt Performing Organization Address [facility] Co de Phone Number [facility] [address] [place] [address], [place] [phone] * Ammonia (10/08/2024 9:10 AM EST) Ammonia 23 11 - 35 mcmol/L LAB CHEMISTRY METHOD 10/08/2024 10:15 AM EST [facility] Blood Venous blood specimen / Unknown Venipuncture / Unknown 10/08/2024 9:10 AM EST 10/08/2024 9:37 AM EST us Aroldo Dejesus MD LAB BLOOD ORDERABLES Final Resu lt Performing Organization Address City/[facility]/ZIP Co de Phone Number [facility] [address] [place] [address], [place] [phone] * (ABNORMAL) Comprehensive metabolic panel (10/08/2024 9:10 AM EST) Sodium 142 133 - 145 mmol/L LAB CHEMISTRY METHOD 10/08/2024 10:41 AM EST [facility] Potassium 4.1 3.5 - 5.5 mmol/L LAB CHEMISTRY METHOD 10/08/2024 10:41 AM [facility] Chloride 110 96 - 110 mmol/L LAB CHEMISTRY METHOD 10/08/2024 10:41 AM [facility] CO2 30 21 - 32 mmol/L LAB CHEMISTRY METHOD 10/08/2024 10:41 AM [facility] Anion Gap 2(L) 3 - 11 LAB CHEMISTRY METHOD 10/08/2024 10:41 AM [facility] Glucose 84 70 - 100 mg/dL LAB CHEMISTRY METHOD 10/08/2024 10:41 AM [facility] BUN 23 5 - 25 mg/dL LAB CHEMISTRY METHOD 10/08/2024 10:41 AM [facility] Creatinine 1.08 0.50 - 1.10 mg/dL LAB CHEMISTRY METHOD 10/08/2024 10:41 AM [facility] LAB eGFR 54(L) >=60 mL/min/1. 73m2 LAB CHEMISTRY METHOD 10/08/2024 10:41 AM [facility] LAB Comment:Calculation based on the??Chronic Kidney Disease Epidemiology Collaboration (CKD-EPI) equation refit??without adjustment for race. BUN/Creatinine Ratio 21.3 LAB CHEMISTRY METHOD 10/08/2024 10:41 AM [facility] Calcium 9.0 8.5 - 10.5 mg/dL LAB CHEMISTRY METHOD 10/08/2024 10:41 AM [facility] AST (SGOT) 12 10 - 42 unit/L LAB CHEMISTRY METHOD 10/08/2024 10:41 AM [facility] ALT (SGPT) <6(L) 10 - 60 unit/L LAB CHEMISTRY METHOD 10/08/2024 10:41 AM [facility] Alkaline Phosphatase 63 42 - 121 unit/L LAB CHEMISTRY METHOD 10/08/2024 10:41 AM [facility] Total Protein 5.7(L) 6.0 - 8.0 g/dL LAB CHEMISTRY METHOD 10/08/2024 10:41 AM EST [facility] Albumin 3.3 3.2 - 5.0 g/dL LAB CHEMISTRY METHOD 10/08/2024 10:41 AM EST [facility] Total Bilirubin 0.5 0.0 - 1.4 mg/dL LAB CHEMISTRY METHOD 10/08/2024 10:41 AM EST [facility] Blood Venous blood specimen / Unknown Venipuncture / Unknown 10/08/2024 9:10 AM EST 10/08/2024 9:37 AM EST us Aroldo Dejesus MD LAB BLOOD ORDERABLES Final Resu lt [facility] ([facility]) [facility] [address] [place] [address], [place] [phone] from Last 3 Months Insurance MEDICARE MEDICAID - [place] Care Teams Plant Engineering Manager Relationship Specialty Start Date End Date Amber Lovelace MD [address] [place] [phone] PCP - General Obstetrics and Gynecology 10/11/24
--- OUTSIDE RECORDS SUMMARY | 2025-01-08 16:01 | XMS_ITS | Encounter Summary ---
Author Organization [employer] Address [address] [place] [address] Care Team Providers Care Epitaxial Reactor Operator Name Role Phone Amber Lovelace MD Primary Care Provid er Encounter Details Date Type Department Care Team (Late st Contact Info) Description 11/26/2024 Lab Requisition [facility] - Main Lab [address] [place] [address] Aroldo Dejesus MD [address] [place] [id number] Parkinsonism, unspecified (CMS/HCC) Social History Tobacco Use Types Packs/Day Years [...] Procedure Name Priority Date/Time Associated Diagnosis Comments COMPLETE BLOOD COUNT Routine 11/28/2024 7:22 AM EST Parkinsonism, unspecified (CMS/HCC) BASIC METABOLIC PANEL Routine 11/28/2024 7:22 AM EST Parkinsonism, unspecified (CMS/HCC) documented in this encounter Results * (ABNORMAL) Basic metabolic panel (11/28/2024 7:22 AM EST) Sodium 138 133 - 145 mmol/L LAB CHEMISTRY METHOD 11/28/2024 11:23 AM EST [facility] Potassium 4.4 3.5 - 5.5 mmol/L LAB CHEMISTRY METHOD 11/28/2024 11:23 AM EST [facility] Chloride 106 96 - 110 mmol/L LAB CHEMISTRY METHOD 11/28/2024 11:23 AM [facility] CO2 30 21 - 32 mmol/L LAB CHEMISTRY METHOD 11/28/2024 11:23 AM [facility] LAB Anion Gap 2(L) 3 - 11 LAB CHEMISTRY METHOD 11/28/2024 11:23 AM [facility] LAB Glucose 77 70 - 100 mg/dL LAB CHEMISTRY METHOD 11/28/2024 11:23 AM [facility] BUN 15 5 - 25 mg/dL LAB CHEMISTRY METHOD 11/28/2024 11:23 AM [facility] Creatinine 0.86 0.50 - 1.10 mg/dL LAB CHEMISTRY METHOD 11/28/2024 11:23 AM [facility] LAB eGFR 71 >=60 mL/min/1. 73m2 LAB CHEMISTRY METHOD 11/28/2024 11:23 AM [facility] LAB Comment:Calculation based on the??Chronic Kidney Disease Epidemiology Collaboration (CKD-EPI) equation refit??without adjustment for race. BUN/Creatinine Ratio 17.4 LAB CHEMISTRY METHOD 11/28/2024 11:23 AM [facility] Calcium 8.2(L) 8.5 - 10.5 mg/dL LAB CHEMISTRY METHOD 11/28/2024 11:23 AM [facility] Blood Venous blood specimen / Unknown Venipuncture / Unknown 11/28/2024 7:22 AM EST 11/28/2024 10:01 AM EST us Aroldo Dejesus MD LAB BLOOD ORDERABLES Final Resu lt [facility] [address] [place] [address], * (ABNORMAL) Complete blood count (11/28/2024 7:22 AM EST) WBC 6.1 4.8 - 10.8 K/mcL LAB HEMETOLOGY METHOD 11/28/2024 10:51 AM [facility] RBC 3.90 3.80 - 4.80 M/mcL LAB HEMETOLOGY METHOD 11/28/2024 10:51 AM [facility] Hemoglobin 11.6 11.5 - 16.0 g/dL LAB HEMETOLOGY METHOD 11/28/2024 10:51 AM [facility] Hematocrit 38.8 35.0 - 47.0 % LAB HEMETOLOGY METHOD 11/28/2024 10:51 AM [facility] LAB MCV 98.5(H) 79.0 - 98.0 FL LAB HEMETOLOGY METHOD 11/28/2024 10:51 AM [facility] LAB MCH 29.4 27.0 - 32.0 pcg LAB HEMETOLOGY METHOD 11/28/2024 10:51 AM [facility] LAB MCHC 29.9(L) 32.0 - 37.0 g/dL LAB HEMETOLOGY METHOD 11/28/2024 10:51 AM [facility] LAB RDW 13.5 11.0 - 15.0 % LAB HEMETOLOGY METHOD 11/28/2024 10:51 AM [facility] Platelets 260 130 - 400 K/mcL LAB HEMETOLOGY METHOD 11/28/2024 10:51 AM [facility] LAB MPV 9.5 7.0 - 11.0 FL LAB HEMETOLOGY METHOD 11/28/2024 10:51 AM [facility] NRBC 0.0 <1.0 % LAB HEMETOLOGY METHOD 11/28/2024 10:51 AM [facility] NRBC Absolute 0.00 <0.10 K/mcL LAB HEMETOLOGY METHOD 11/28/2024 10:51 AM [facility] LAB Blood Venous blood specimen / Unknown Venipuncture / Unknown 11/28/2024 7:22 AM EST 11/28/2024 10:01 AM EST us Aroldo Dejesus MD LAB BLOOD ORDERABLES Final Resu lt [facility] ([facility]) [facility] [address] [place] [address], documented in this encounter Visit Diagnoses Diagnosis Parkinsonism, unspecified (CMS/HCC) documented in this encounter Care Teams Epitaxial Reactor Operator Relationship Specialty Start Date End Date Amber Lovelace MD [address] [place] [address] PCP - General Obstetrics and Gynecology 10/11/24 documented as of this encounter
--- OUTSIDE RECORDS SUMMARY | 2025-01-08 16:01 | XMS_ITS | Encounter Summary ---
Author Organization [employer] Address [address] [place] [address] Care Team Providers Care Foot Specialist Name Role Phone Amber Lovelace MD Primary Care Provid er Encounter Details Date Type Department Care Team (Late st Contact Info) Description 10/08/2024 Lab Requisition [facility] - Main Lab [address] [place] [address] Aroldo Dejesus MD [address] [place] [id number] Other fatigue Social History Tobacco Use Types [...] Procedure Name Priority Date/Time Associated Diagnosis Comments URINALYSIS WITH REFLEX MICROSCOPIC Routine 10/07/2024 10:15 PM EST Other fatigue URINALYSIS WITH REFLEX MICROSCOPIC Routine 10/07/2024 10:15 PM EST Other fatigue CULTURE URINE Routine 10/07/2024 10:15 PM EST Other fatigue documented in this encounter Results * (ABNORMAL) Urinalysis with reflex microscopic (10/07/2024 10:15 PM EST) Specific [place] Urine 1.020 1.003 - 1.030 LAB URINALYSIS - AUTOMATED METHOD 10/08/2024 9:33 AM EST [facility] pH, Urine 7.0 5.0 - 8.0 pH LAB URINALYSIS - AUTOMATED METHOD 10/08/2024 9:33 AM [facility] LAB Leukocytes, Urine Trace(A) Negative LAB URINALYSIS - AUTOMATED METHOD 10/08/2024 9:33 AM [facility] Nitrite, Urine Negative Negative LAB URINALYSIS - AUTOMATED METHOD 10/08/2024 9:33 AM [facility] Protein, Urine Negative <=Trace mg/dL LAB URINALYSIS - AUTOMATED METHOD 10/08/2024 9:33 AM [facility] Glucose, Urine Negative Negative mg/dL LAB URINALYSIS - AUTOMATED METHOD 10/08/2024 9:33 AM [facility] Ketones, Urine Negative Negative mg/dL LAB URINALYSIS - AUTOMATED METHOD 10/08/2024 9:33 AM [facility] LAB Urobilinogen, Urine 1.0 0.2 - 1.0 mg/dL LAB URINALYSIS - AUTOMATED METHOD 10/08/2024 9:33 AM [facility] LAB Bilirubin, Urine Negative Negative LAB URINALYSIS - AUTOMATED METHOD 10/08/2024 9:33 AM [facility] Blood, Urine Negative Negative LAB URINALYSIS - AUTOMATED METHOD 10/08/2024 9:33 AM [facility] LAB RBC, Urine 2.4 0 - 4 /HPF LAB URINALYSIS - AUTOMATED METHOD 10/08/2024 9:33 AM [facility] LAB WBC, Urine 7.1(H) 0 - 4 /HPF LAB URINALYSIS - AUTOMATED METHOD 10/08/2024 9:33 AM [facility] Squamous Epithelial, Urine 15 0 - 60 /LPF LAB URINALYSIS - AUTOMATED METHOD 10/08/2024 9:33 AM [facility] Bacteria, Urine Negative Negative /HPF LAB URINALYSIS - AUTOMATED METHOD 10/08/2024 9:33 AM [facility] Hyaline Casts, Urine 0.4 0 - 3 /LPF LAB URINALYSIS - AUTOMATED METHOD 10/08/2024 9:33 AM EST [facility] Urine Urine specimen obtained by clean catch procedure / Unknown 10/07/2024 10:15 PM EST 10/08/2024 8:58 AM EST us Aroldo Dejesus MD LAB URINE ORDERABLES Final Resu lt [facility] [address] [place] [address], [place] [phone] * Culture urine (10/07/2024 10:15 PM EST) Culture, Urine No growth 10/09/2024 9:01 AM EST [facility] Urine Urine specimen obtained by clean catch procedure / Unknown 10/07/2024 10:15 PM EST 10/08/2024 8:58 AM EST us Aroldo Dejesus MD LAB MICROBIOLOGY - GENERAL ORDE RABLES Final Result Performing Organization Address City/[facility]/ZIP Co de Phone Number [facility] [address] [place] [address], [place] [phone] documented in this encounter Visit Diagnoses Diagnosis Other fatigue documented in this encounter Care Teams Foot Specialist Relationship Specialty Start Date End Date Amber Lovelace MD [facility] [place] [place] [address] PCP - General Obstetrics and Gynecology 10/11/24 documented as of this encounter
--- OUTSIDE RECORDS SUMMARY | 2025-01-08 16:01 | XMS_ITS | Encounter Summary ---
Author Organization [employer] Address [address] [place] [address] Care Team Providers Care Licensed Master Social Worker Name Role Phone Amber Lovelace MD Primary Care Provid er Encounter Details Date Type Department Care Team (Late st Contact Info) Description 12/25/2024 Lab Requisition [facility] - Main Lab [address] [place] [address] Aroldo Dejesus MD [address] [place] [id number] Unspecified dementia, unspecified severity, without behavioral disturbance, psychotic disturbance, mood disturbance, and anxiety (CMS/HCC); Anemia, unspecified Social History Tobacco Use Types Packs/Day Years [...] mood disturbance, and anxiety (CMS/HCC) Anemia, unspecified documented in this encounter Results * (ABNORMAL) CBC auto differential (12/25/2024 2:14 PM EST) WBC 5.2 4.8 - 10.8 K/[facility] LAB HEMETOLOGY METHOD 12/25/2024 2:50 PM [facility] LAB RBC 4.00 3.80 - 4.80 M/mcL LAB HEMETOLOGY METHOD 12/25/2024 2:50 PM [facility] LAB Hemoglobin 11.7 11.5 - 16.0 g/dL LAB HEMETOLOGY METHOD 12/25/2024 2:50 PM [facility] LAB Hematocrit 39.3 35.0 - 47.0 % LAB HEMETOLOGY METHOD 12/25/2024 2:50 PM [facility] LAB MCV 97.8 79.0 - 98.0 FL LAB HEMETOLOGY METHOD 12/25/2024 2:50 PM [facility] LAB MCH 29.1 27.0 - 32.0 pcg LAB HEMETOLOGY METHOD 12/25/2024 2:50 PM [facility] LAB MCHC 29.8(L) 32.0 - 37.0 g/dL LAB HEMETOLOGY METHOD 12/25/2024 2:50 PM [facility] LAB RDW 12.9 11.0 - 15.0 % LAB HEMETOLOGY METHOD 12/25/2024 2:50 PM [facility] LAB Platelets 244 130 - 400 K/mcL LAB HEMETOLOGY METHOD 12/25/2024 2:50 PM [facility] LAB MPV 9.6 7.0 - 11.0 FL LAB HEMETOLOGY METHOD 12/25/2024 2:50 PM [facility] LAB NRBC 0.0 <1.0 % LAB HEMETOLOGY METHOD 12/25/2024 2:50 PM [facility] LAB NRBC Absolute 0.00 <0.10 K/mcL LAB HEMETOLOGY METHOD 12/25/2024 2:50 PM [facility] LAB Neutrophils Relative 54.9 % LAB HEMETOLOGY METHOD 12/25/2024 2:50 PM [facility] LAB Lymphocytes Relative 35.3 % LAB HEMETOLOGY METHOD 12/25/2024 2:50 PM [facility] LAB Monocytes Relative 7.8 % LAB HEMETOLOGY METHOD 12/25/2024 2:50 PM [facility] LAB Eosinophils Relative 1.4 % LAB HEMETOLOGY METHOD 12/25/2024 2:50 PM [facility] LAB Basophils Relative 0.4 % LAB HEMETOLOGY METHOD 12/25/2024 2:50 PM [facility] LAB Immature Granulocytes Relative 0.2 % LAB HEMETOLOGY METHOD 12/25/2024 2:50 PM [facility] LAB Neutrophils Absolute 2.83 1.50 - 7.00 K/mcL LAB HEMETOLOGY METHOD 12/25/2024 2:50 PM [facility] LAB Lymphocytes Absolute 1.82 1.00 - 5.00 K/mcL LAB HEMETOLOGY METHOD 12/25/2024 2:50 PM [facility] LAB Monocytes Absolute 0.40 0.20 - 1.00 K/mcL LAB HEMETOLOGY METHOD 12/25/2024 2:50 PM [facility] LAB Eosinophils Absolute 0.07 0.00 - 0.50 K/mcL LAB HEMETOLOGY METHOD 12/25/2024 2:50 PM [facility] LAB Basophils Absolute 0.02 0.00 - 0.20 K/mcL LAB HEMETOLOGY METHOD 12/25/2024 2:50 PM [facility] LAB Immature Granulocytes Absolute 0.01 0.00 - 0.03 K/mcL LAB HEMETOLOGY METHOD 12/25/2024 2:50 PM [facility] LAB Blood Venous blood specimen / Unknown Venipuncture / Unknown 12/25/2024 2:14 PM EST 12/25/2024 2:40 PM EST us Aroldo Dejesus MD LAB BLOOD ORDERABLES Final Resu lt [facility] ([facility] HOSPITAL LAB [address] [place] [address], documented in this encounter Visit Diagnoses Diagnosis Unspecified dementia, unspecified severity, without behavioral disturbance, psychotic disturbance, mood disturbance, and anxiety (CMS/HCC) Anemia, unspecified documented in this encounter Care Teams Licensed Master Social Worker Relationship Specialty Start Date End Date Amber Lovelace MD [address] [facility] [address] [place] [address] PCP - General Obstetrics and Gynecology 10/11/24 documented as of this encounter
== END 2025-01-08 16:19 | disposition home or self-care (01) ==
PROVIDERS: PCP Internal Medicine; Visit Provider Nurse Practitioner Family
DX: G20.A1 Parkinson's disease without dyskinesia, without mention of fluctuations (principal); K11.7 Disturbances of salivary secretion
CPT/HCPCS: 99214; G2211

== ENCOUNTER → 2025-01-08 14:47 | Outpatient (BNVA) | payer MEDICARE, MEDICAID, SELFPAY | PROVIDERS: PCP Internal Medicine; Visit Provider Nurse Practitioner Family | DX: G20.A1 Parkinson's disease without dyskinesia, without mention of fluctuations (principal); K11.7 Disturbances of salivary secretion | CPT/HCPCS: 99212 ==

== ENCOUNTER 2025-04-08 15:31 | Outpatient (AMB) | payer MEDICARE, MEDICAID, SELFPAY ==
--- NOTE | 2025-04-08 15:33 | A.OFFVIS_ITS ---
Vital Signs 04/08/25 15:34 Height 4 ft 11 in BP 120/78 Blood Pressure Location Rt brachial Position Sitting Pulse 80 Pulse Source Pulse Oximeter Pulse Oximetry (%) 100 Oxygen Delivery Method Room Air Intake Visit Reasons: Botox-Conf w/daughter Intake Note: Patient presents for botox injection. practice supplied Allergies citalopram Allergy (Unknown, Verified 04/08/25 15:43) Unknown pollen extracts Allergy (Unknown, Verified 04/08/25 15:43) Unknown Medication List - Last Reconciled 04/08/25 by Mary Henry MD acetaminophen 325 mg PO QID PRN bisacodyl (Dulcolax (bisacodyl)) 10 mg [place] DAILY PRN bupropion HCl XL 300 mg PO DAILY carbidopa-levodopa 36.25-145 mg ER (Rytary) 2 caps orally 5 times a day; divide evenly over waking hours cholecalciferol (vitamin D3) 1,250 mcg PO QWEEK istradefylline (Nourianz) 20 mg PO DAILY 30 days ketotifen fumarate 0.025%(0.035%) 0 drps ophthalmic (eye) levothyroxine 112 mcg PO DAILY lidocaine 4% (Aspercreme (lidocaine)) 1 patch topical DAILY PRN lutein-zeaxanthin 25-5 mg (Ocuvite Lutein) caps PO DAILY magnesium hydroxide 1,200 mg PO DAILY PRN magnesium hydroxide (Milk of Magnesia) 30 mL PO DAILY PRN mirtazapine 7.5 mg PO BEDTIME olanzapine 12.5 mg PO BEDTIME onabotulinumtoxinA (Botox) 100 units IM ONCE 12 weeks pimavanserin (Nuplazid) 34 mg PO DAILY 30 days polyethylene glycol 3350 (Miralax) 17 grams PO DAILY potassium chloride ER 20 mEq PO DAILY rasagiline 1 mg PO DAILY sennosides (Senna Lax) 17.2 mg PO DAILY PRN temazepam 7.5 mg PO BEDTIME trazodone 50 mg PO BEDTIME HPI Comments Details: 75y/o male comes for treatment of sialorrhea with botox Botulinum toxin type A Lot no [id number] Exp 03/2027 was diluted with 1 cc of normal saline at a concentration of 10 units in 0.1 cc. Side effects were discussed and an informed consent was obtained. Bilateral parotid glands 30 units each Bilateral Submandibular glands 20 units each Total uses 100 units PFSH Medical History Sialorrhea Parkinson's disease Surgical History No history of previous surgery Family History Father Cancer Mother Osteoporosis Social History Alcohol intake: never Patient Tobacco Use Status: Never used Tobacco Physical Exam Vital Signs: Last Vital Signs Pulse 80 04/08/25 15:34 BP 120/78 04/08/25 15:34 Pulse Ox 100 04/08/25 15:34 Oxygen Delivery Method Room Air 04/08/25 15:34 Const General: cooperative and no acute distress Office Procedures Botulinum toxin Injection 23562 - Salivary Glands Procedure code (CPT) selection complete Office Meds onabotulinumtoxinA 100 unit solution for injection Performing Provider: Mary Henry MD Performing Location: [facility] Administered by: Mary Henry MD on 04/08/25 16:10 Dose Route Admin Location Dispensed Lot Number Expiration Date [facility] Form Drafter 100 unit subcut 100 units [id number] ALLERGAN/BOTOX Assessment & Plan Assessment & Plan (1) Sialorrhea: Code(s): K11.7 - Disturbances of salivary secretion Category: Medical Plan Patient tolerated the procedure well she will call with any side effects Orders: Orders AMB Botulinum toxin Injection Today K11.7 - Disturbances of salivary secretion Medications: New onabotulinumtoxinA 100 units subcut ONCE 1 ea 0RF sialorhea K11.7 - Dist urbances of salivary secretion Coding Level of Care Code Est Pt Level 1 (72816) Diagnoses Sialorrhea K11.7 CPT Codes Botox Injection - Botox1: 45198 - Salivary Glands ([id number])
[2025-04-08 15:34] VITALS: BP 120/78; PULSE 80; O2SAT 100
== END 2025-04-08 15:56 | disposition home or self-care (01) ==
LOC: HO.HSMS 15:32
PROVIDERS: PCP Internal Medicine; Visit Provider Psychiatry & Neurology Neurology
DX: K11.7 Disturbances of salivary secretion (principal)
CPT/HCPCS: 64611

== ENCOUNTER → 2025-04-08 15:31 | Outpatient (BNVA) | payer MEDICARE, MEDICAID, SELFPAY | PROVIDERS: PCP Internal Medicine; Visit Provider Psychiatry & Neurology Neurology | DX: K11.7 Disturbances of salivary secretion (principal) | CPT/HCPCS: 64611; 99211; J0585 ==

== ENCOUNTER 2025-07-01 13:50 | Outpatient (AMB) | payer MEDICARE, MEDICAID, SELFPAY ==
[2025-07-01 13:55] VITALS: BP 120/68; PULSE 79; O2SAT 98; BMI 27.5
--- NOTE | 2025-07-01 13:55 | A.OFFVIS_ITS ---
Vital Signs 07/01/25 13:55 Height 4 ft 11 in Weight 136 lb BMI 27.5 BP 120/68 Blood Pressure Location Lt brachial Position Sitting Pulse 79 Pulse Source Pulse Oximeter Pulse Oximetry (%) 98 Oxygen Delivery Method Room Air Intake Visit Reasons: 6 mo follow up Intake Note: Patient presents follow up Parkinson's medication [employer] Required: No [employer] Services: [employer] Offered & Declined Accompanied by: Daughter Allergies citalopram Allergy (Unknown, Verified 07/01/25 13:59) Unknown pollen extracts Allergy (Unknown, Verified 07/01/25 13:59) Unknown Medication List - Last Reconciled 07/01/25 by MARIOLA De Paz acetaminophen 325 mg PO QID PRN bisacodyl (Dulcolax (bisacodyl)) 10 mg [place] DAILY PRN bupropion HCl XL 300 mg PO DAILY carbidopa-levodopa 36.25-145 mg ER (Rytary) 2 caps orally 5 times a day; divide evenly over waking hours cholecalciferol (vitamin D3) 1,250 mcg PO QWEEK istradefylline (Nourianz) 20 mg PO DAILY 30 days ketotifen fumarate 0.025%(0.035%) 0 drps ophthalmic (eye) levothyroxine 112 mcg PO DAILY lidocaine 4% (Aspercreme (lidocaine)) 1 patch topical DAILY PRN lutein-zeaxanthin 25-5 mg (Ocuvite Lutein) caps PO DAILY magnesium hydroxide 1,200 mg PO DAILY PRN magnesium hydroxide (Milk of Magnesia) 30 mL PO DAILY PRN mirtazapine 7.5 mg PO BEDTIME olanzapine 12.5 mg PO BEDTIME onabotulinumtoxinA (Botox) 100 units IM ONCE 12 weeks pimavanserin (Nuplazid) 34 mg PO DAILY 30 days polyethylene glycol 3350 (Miralax) 17 grams PO DAILY potassium chloride ER 20 mEq PO DAILY rasagiline 1 mg PO DAILY sennosides (Senna Lax) 17.2 mg PO DAILY PRN trazodone 50 mg PO BEDTIME HPI Comments Details: 75-yr-old female presents for f/u visit of Parkinson's, accompanied by her dtr. Pt denies any significant interval medical history changes. Patient and patient's daughter report the patient still tends to have good days and bad days. Pt continues to live in SNF. She still needs?increasing assist w/ ADLs. Pt states her drooling is better with Botox for siallorhea, but now she is prone to dry mouth. Pt is eating some of the facility and her family's food, but this varies depending on the day. She feels slow, varies day by day. She had a fall in May- struck her forehead- required gluing. During ER eval she was monitored for imaging results notable for remote vertebral fracture and h/o PE. Denies constipation. Daughter reports patient's mood varies, patient has been argumentative w/ one of her aides. Hallucinations are present- now identifies them as a nightmare when awake. She states her memory varies- day to day. Dtr feels that pt is having more STM lapses. She states her sleep varies- some nights good but other nights not as good- would prefer to stay up later within she would not wake up in time breakfast. Pt is going to some of the activities offered at SNF She states she is not walking as much. [facility] Medical History Sialorrhea Parkinson's disease Surgical History No history of previous surgery Family History Father Cancer Mother Osteoporosis Social History Alcohol intake: never Patient Tobacco Use Status: Never used Tobacco Physical Exam Vital Signs: Last Vital Signs Pulse 79 07/01/25 13:55 BP 120/68 07/01/25 13:55 Pulse Ox 98 07/01/25 13:55 Oxygen Delivery Method Room Air 07/01/25 13:55 BMI result Body Mass Index 27.5 Const General: cooperative and no acute distress Resp Effort & Inspection: normal respiratory effort and able to speak in complete sentences Neuro Other: General: Alert, responsive, oriented to person Expression: Decreased expression and blink. Mild left facial droop. Voice: Soft Drooling: No visible drooling Tremor: No tremor Tone: BUE rigidity Dyskinesia: None FFM: BUE bradykinesia Foot taps: BLE bradykinesia Gait: Sitting upright in w/c. Psych: Pleasant affect. Patient did not verbalize hallucination today. 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 However, she may benefit from reducing the frequency of Botox injections to minimize the risk of dry mouth. Due to increasing rigidity and mobility issues, we will adjust her levodopa therapy: * Start Crexont (carbidopa-levodopa ER capsule) 87.5-350 mg orally every 6 hours. * Once Crexont is available, discontinue Rytary 36.25-145mg cap order of 2 caps 5 times a day (at 6:30am, 11am, 3:30pm, 7pm, and 11:30pm). * Monitor for changes in rigidity, mobility, mood, hallucinations, and for the development of gastrointestinal upset, orthostatic hypotension, or dyskinesias. Continue Rasagiline 1mg qd. Continue Nourianz 20mg qd Continue Olanzapine 12.5mg qd Continue Nuplazid 34mg qd. Encourage regular physical, social, and cognitively stimulating activities, including participating in programs offered at the shelter and engaging with family. Request ROLL RECLAIMER evaluation and treatment for hypophonia, with instruction in ROLL RECLAIMER exercises such as PD Loud techniques. Previously provided the patient?s daughter with information on the [employer] genetic program. Follow-up: Return to clinic in 6 months or sooner as needed. Medications: New carbidopa-levodopa 87.5-350 mg ER (Crexont) 1 cap PO Q6H 120 ea 0RF 30 days Coding Level of Care Code Est Pt Level 4 (50927) Diagnoses Parkinson's disease without dyskinesia, with fluctuating manifestations G20.A2 Fluctuating manifestations: with fluctuating manifestations Psychosis due to Parkinson's disease G20 Sialorrhea K11.7
--- OUTSIDE RECORDS SUMMARY | 2025-07-01 14:30 | XMS_ITS | Encounter Summary ---
Author Organization [employer] Address [address] [place] [address] Care Team Providers Care Print Traffic Manager Name Role Phone Amber Lovelace MD Primary Care Provid er Encounter Details Date Type Department Care Team (Late st Contact Info) Description 10/08/2024 Lab Requisition [facility] - Main Lab [address] [place] [address] Aroldo Dejesus MD [address] [place] [id number] Other fatigue Social History Tobacco Use Types [...] reflex microscopic (10/07/2024 10:15 PM EST) Specific Ward Urine 1.020 1.003 - 1.030 LAB URINALYSIS - AUTOMATED METHOD 10/08/2024 9:33 AM EST [facility] LAB pH, Urine 7.0 5.0 - 8.0 pH LAB URINALYSIS - AUTOMATED METHOD 10/08/2024 9:33 AM [facility] LAB Leukocytes, Urine Trace(A) Negative LAB URINALYSIS - AUTOMATED METHOD 10/08/2024 9:33 AM [facility] LAB Nitrite, Urine Negative Negative LAB URINALYSIS - AUTOMATED METHOD 10/08/2024 9:33 AM [facility] Protein, Urine Negative <=Trace mg/dL LAB URINALYSIS - AUTOMATED METHOD 10/08/2024 9:33 AM [facility] Glucose, Urine Negative Negative mg/dL LAB URINALYSIS - AUTOMATED METHOD 10/08/2024 9:33 AM [facility] Ketones, Urine Negative Negative mg/dL LAB URINALYSIS - AUTOMATED METHOD 10/08/2024 9:33 AM [facility] Urobilinogen, Urine 1.0 0.2 - 1.0 mg/dL LAB URINALYSIS - AUTOMATED METHOD 10/08/2024 9:33 AM [facility] Bilirubin, Urine Negative Negative LAB URINALYSIS - AUTOMATED METHOD 10/08/2024 9:33 AM [facility] Blood, Urine Negative Negative LAB URINALYSIS - AUTOMATED METHOD 10/08/2024 9:33 AM [facility] LAB RBC, Urine 2.4 0 - 4 /HPF LAB URINALYSIS - AUTOMATED METHOD 10/08/2024 9:33 AM [facility] LAB WBC, Urine 7.1(H) 0 - 4 /HPF LAB URINALYSIS - AUTOMATED METHOD 10/08/2024 9:33 AM [facility] LAB Squamous Epithelial, Urine 15 0 - 60 /LPF LAB URINALYSIS - AUTOMATED METHOD 10/08/2024 9:33 AM [facility] Bacteria, Urine Negative Negative /HPF LAB URINALYSIS - AUTOMATED METHOD 10/08/2024 9:33 AM [facility] Hyaline Casts, Urine 0.4 0 - 3 /LPF LAB URINALYSIS - AUTOMATED METHOD 10/08/2024 9:33 AM EST [facility] LAB Urine Urine specimen obtained by clean catch procedure / Unknown 10/07/2024 10:15 PM EST 10/08/2024 8:58 AM EST us Aroldo Dejesus MD LAB URINE ORDERABLES Final Resu lt [facility] [address] [place] [address], [place] [phone] * Culture urine (10/07/2024 10:15 PM EST) Culture, Urine No growth 10/09/2024 9:01 AM EST [facility] Urine Urine specimen obtained by clean catch procedure / Unknown 10/07/2024 10:15 PM EST 10/08/2024 8:58 AM EST us Aroldo Dejesus MD LAB MICROBIOLOGY - GENERAL ORDE RABLES Final Result Performing Organization Address City/[facility]/ZIP Co de Phone Number [facility] [address] [place] [address], [place] [phone] documented in this encounter Visit Diagnoses Diagnosis Other fatigue documented in this encounter Care Teams Print Traffic Manager Relationship Specialty Start Date End Date Amber Lovelace MD [facility] [place] [address] PCP - General Obstetrics and Gynecology 10/11/24 documented as of this encounter
== END 2025-07-01 15:33 | disposition home or self-care (01) ==
LOC: HO.HSMS 13:51
PROVIDERS: PCP Internal Medicine; Visit Provider Nurse Practitioner Family
DX: G20.A2 Parkinson's disease without dyskinesia, with fluctuations (principal); K11.7 Disturbances of salivary secretion
CPT/HCPCS: 99214

== ENCOUNTER → 2025-07-01 13:50 | Outpatient (BNVA) | payer MEDICARE, MEDICAID, SELFPAY | PROVIDERS: PCP Internal Medicine; Visit Provider Nurse Practitioner Family | DX: G20.A2 Parkinson's disease without dyskinesia, with fluctuations (principal); K11.7 Disturbances of salivary secretion; Z79.899 Other long term (current) drug therapy | CPT/HCPCS: 99212 ==

== ENCOUNTER 2025-08-26 12:32 | Outpatient (AMB) | payer MEDICARE, MEDICAID, SELFPAY ==
--- NOTE | 2025-08-26 12:33 | A.OFFVIS_ITS ---
Vital Signs 08/26/25 12:34 Height 4 ft 11 in BP 110/72 Blood Pressure Location Rt brachial Position Sitting Pulse 80 Pulse Source Pulse Oximeter Pulse Oximetry (%) 97 Oxygen Delivery Method Room Air Intake Visit Reasons: Botox Intake Note: Botox Paper Sales Manager Required: No Accompanied by: Daughter Allergies citalopram Allergy (Unknown, Verified 08/26/25 12:34) Unknown pollen extracts Allergy (Unknown, Verified 08/26/25 12:34) Unknown Medication List - Last Reconciled 08/26/25 by Mary Henry MD acetaminophen 325 mg PO QID PRN bisacodyl (Dulcolax (bisacodyl)) 10 mg [place] DAILY PRN bupropion HCl XL 300 mg PO DAILY carbidopa-levodopa 87.5-350 mg ER (Crexont) 1 cap PO Q6H 30 days cholecalciferol (vitamin D3) 1,250 mcg PO QWEEK istradefylline (Nourianz) 20 mg PO DAILY 30 days ketotifen fumarate 0.025%(0.035%) 0 drps ophthalmic (eye) levothyroxine 112 mcg PO DAILY lidocaine 4% (Aspercreme (lidocaine)) 1 patch topical DAILY PRN lutein-zeaxanthin 25-5 mg (Ocuvite Lutein) caps PO DAILY mirtazapine 7.5 mg PO BEDTIME olanzapine 12.5 mg PO BEDTIME onabotulinumtoxinA (Botox) 100 units IM ONCE 12 weeks pimavanserin (Nuplazid) 34 mg PO DAILY 30 days polyethylene glycol 3350 (Miralax) 17 grams PO DAILY potassium chloride ER 20 mEq PO DAILY rasagiline 1 mg PO DAILY sennosides (Senna Lax) 17.2 mg PO DAILY PRN trazodone 50 mg PO BEDTIME HPI Comments Details: 75y/o male comes for treatment of sialorrhea with botox Botulinum toxin type A Lot no [id number] Exp 09/2027 was diluted with 1 cc of normal saline at a concentration of 10 units in 0.1 cc. Side effects were discussed and an informed consent was obtained. Bilateral parotid glands 30 units each Bilateral Submandibular glands 20 units each Total uses 100 units PFSH Medical History Sialorrhea Parkinson's disease Surgical History No history of previous surgery Family History Father Cancer Mother Osteoporosis Social History Alcohol intake: never Patient Tobacco Use Status: Never used Tobacco Physical Exam Vital Signs: Last Vital Signs Pulse 80 08/26/25 12:34 BP 110/72 08/26/25 12:34 Pulse Ox 97 08/26/25 12:34 Oxygen Delivery Method Room Air 08/26/25 12:34 Const General: cooperative and no acute distress Resp Effort & Inspection: normal respiratory effort and able to speak in complete sentences Neuro Other: General: Alert, responsive, oriented to person Expression: Decreased expression and blink. Mild left facial droop. Voice: Soft Drooling: No visible drooling Tremor: No tremor Tone: BUE rigidity Dyskinesia: None FFM: BUE bradykinesia Foot taps: BLE bradykinesia Gait: Sitting upright in w/c. Psych: Pleasant affect. Patient did not verbalize hallucination today. Office Procedures Botulinum toxin Injection 89289 - Salivary Glands Procedure code (CPT) selection complete Office Meds onabotulinumtoxinA 100 unit solution for injection Performing Provider: Mary Henry MD Performing Location[place] [facility] Administered by: Mary Henry MD on 08/26/25 12:59 Dose Route Admin Location Dispensed Lot Number Expiration Date [facility] Executive Vice President 100 unit subcut 100 units [id number] ALLERGAN /BOTOX Total Dispensed Waste 100 units 0 % Assessment & Plan Assessment & Plan (1) Sialorrhea: Code(s): K11.7 - Disturbances of salivary secretion Category: Medical Plan Patient tolerated the procedure well she will call with any side effects Orders: Orders 2 AMB Botulinum toxin Injection Today K11.7 - Disturbances of salivary secretion Coding Level of Care Code Est Pt Level 1 (73657) Diagnoses Sialorrhea K11.7 CPT Codes Botox Injection - Botox1: 75170 - Salivary Glands ([id number])
[2025-08-26 12:34] VITALS: BP 110/72; PULSE 80; O2SAT 97
--- OUTSIDE RECORDS SUMMARY | 2025-08-26 13:39 | XMS_ITS | Encounter Summary ---
Author Organization [employer] Address [address] [place] [address] Care Team Providers Care Conservation Specialist Name Role Phone Amber Lovelace MD Primary Care Provid er Encounter Details Date Type Department Care Team (Late st Contact Info) Description 08/19/2025 Lab Requisition [facility] - Main Lab [address] [place] [address] Aroldo Dejesus MD [address] [place] [phone] Altered mental status, unspecified Social History Tobacco Use Types Packs/Day [...] Associated Diagnosis Comments COMPLETE BLOOD COUNT Routine 08/19/2025 5:59 AM EDT Altered mental status, unspecified documented in this encounter Results * (ABNORMAL) Complete blood count (08/19/2025 5:59 AM EDT) WBC 8.9 4.8 - 10.8 K/[facility] LAB HEMETOLOGY METHOD 08/19/2025 9:28 AM EDT [facility] LAB RBC 4.30 3.80 - 4.80 M/[facility] LAB HEMETOLOGY METHOD 08/19/2025 9:28 AM EDT [facility] LAB Hemoglobin 12.6 11.5 - 16.0 g/dL LAB HEMETOLOGY METHOD 08/19/2025 9:28 AM EDT [facility] LAB Hematocrit 41.6 35.0 - 47.0 % LAB HEMETOLOGY METHOD 08/19/2025 9:28 AM EDT [facility] MCV 97.2 79.0 - 98.0 FL LAB HEMETOLOGY METHOD 08/19/2025 9:28 AM EDT [facility] LAB MCH 29.4 27.0 - 32.0 pcg LAB HEMETOLOGY METHOD 08/19/2025 9:28 AM EDT [facility] LAB MCHC 30.3(L) 32.0 - 37.0 g/dL LAB HEMETOLOGY METHOD 08/19/2025 9:28 AM EDT [facility] RDW 13.0 11.0 - 15.0 % LAB HEMETOLOGY METHOD 08/19/2025 9:28 AM T [facility] Platelets 270 130 - 400 K/mcL LAB HEMETOLOGY METHOD 08/19/2025 9:28 AM EDT [facility] MPV 9.8 7.0 - 11.0 FL LAB HEMETOLOGY METHOD 08/19/2025 9:28 AM EDT [facility] NRBC 0.0 <1.0 % LAB HEMETOLOGY METHOD 08/19/2025 9:28 AM T [facility] NRBC Absolute 0.00 <0.10 K/mcL LAB HEMETOLOGY METHOD 08/19/2025 9:28 AM T [facility] Blood Venous blood specimen / Unknown Venipuncture / Unknown 08/19/2025 5:59 AM EDT 08/19/2025 8:35 AM EDT us Aroldo Dejesus MD LAB BLOOD ORDERABLES Final Resu lt [facility] [address] [place] [address], documented in this encounter Visit Diagnoses Diagnosis Altered mental status, unspecified documented in this encounter Care Teams Conservation Specialist Relationship Specialty Start Date End Date Amber Lovelace MD [address] [address] PCP - General Obstetrics and Gynecology 10/11/24 documented as of this encounter
--- OUTSIDE RECORDS SUMMARY | 2025-08-26 13:39 | XMS_ITS | Encounter Summary ---
Author Organization [employer] Address [address] [place] [address] Care Team Providers Care Opto Mechanical Engineer Name Role Phone Amber Lovelace MD Primary Care Provid er Encounter Details Date Type Department Care Team (Late st Contact Info) Description 08/19/2025 Lab Requisition [facility] - Main Lab [address] [facility] [place] [address] Aroldo Dejesus MD [address] [place] [id number] Dementia in other diseases classified elsewhere, unspecified severity, with mood disturbance (CMS/HCC V24, CMS/HCC V28); Altered mental status, unspecified Social History Tobacco [...] Diagnosis Comments URINALYSIS WITH REFLEX MICROSCOPIC Routine 08/18/2025 8:45 PM EDT Dementia in other diseases classified elsewhere, unspecified severity, with mood disturbance (CMS/HCC V24, CMS/HCC V28) Altered mental status, unspecified URINALYSIS WITH REFLEX MICROSCOPIC Routine 08/18/2025 8:45 PM EDT Dementia in other diseases classified elsewhere, unspecified severity, with mood disturbance (CMS/HCC V24, CMS/HCC V28) Altered mental status, unspecified CULTURE URINE Routine 08/18/2025 8:45 PM EDT Dementia in other diseases classified elsewhere, unspecified severity, with mood disturbance (CMS/HCC V24, CMS/[facility] V28) Altered mental status, unspecified documented in this encounter Results * (ABNORMAL) Urinalysis with reflex microscopic (08/18/2025 8:45 PM EDT) Specific [place] Urine 1.035(H) 1.003 - 1.030 LAB URINALYSIS - AUTOMATED METHOD 08/19/2025 12:56 PM [facility] pH, Urine 6.0 5.0 - 8.0 pH LAB URINALYSIS - AUTOMATED METHOD 08/19/2025 12:56 PM [facility] Leukocytes, Urine Small(A) Negative LAB URINALYSIS - AUTOMATED METHOD 08/19/2025 12:56 PM [facility] Nitrite, Urine Negative Negative LAB URINALYSIS - AUTOMATED METHOD 08/19/2025 12:56 PM [facility] Protein, Urine Trace <=Trace mg/dL LAB URINALYSIS - AUTOMATED METHOD 08/19/2025 12:56 PM [facility] Glucose, Urine Negative Negative mg/dL LAB URINALYSIS - AUTOMATED METHOD 08/19/2025 12:56 PM [facility] Ketones, Urine 15(A) Negative mg/dL LAB URINALYSIS - AUTOMATED METHOD 08/19/2025 12:56 PM [facility] Urobilinogen , Urine 1.0 0.2 - 1.0 mg/dL LAB URINALYSIS - AUTOMATED METHOD 08/19/2025 12:56 PM [facility] Bilirubin, Urine Negative Negative LAB URINALYSIS - AUTOMATED METHOD 08/19/2025 12:56 PM [facility] Blood, Urine Negative Negative LAB URINALYSIS - AUTOMATED METHOD 08/19/2025 12:56 PM [facility] RBC, Urine 2.0 0 - 4 /HPF LAB URINALYSIS - AUTOMATED METHOD 08/19/2025 12:56 PM EDT [facility] WBC, Urine 6.0(H) 0 - 4 /HPF LAB URINALYSIS - AUTOMATED METHOD 08/19/2025 12:56 PM EDT [facility] Squamous Epithelial, Urine 20 0 - 60 /LPF LAB URINALYSIS - AUTOMATED METHOD 08/19/2025 12:56 PM EDT [facility] Crystals, Urine MOD CALCIUM OXALATE /LPF LAB URINALYSIS - AUTOMATED METHOD 08/19/2025 12:56 PM EDT [facility] Bacteria, Urine Many(A) Negative /HPF LAB URINALYSIS - AUTOMATED METHOD 08/19/2025 12:56 PM EDT [facility] Hyaline Casts, Urine 3.0 0 - 3 /LPF LAB URINALYSIS - AUTOMATED METHOD 08/19/2025 12:56 PM EDT [facility] Urine Urine specimen obtained by clean catch procedure / Unknown 08/18/2025 8:45 PM EDT 08/19/2025 12:13 PM EDT us Aroldo Dejesus MD LAB URINE ORDERABLES Final Resu lt Performing Organization Address [facility]/ZIP Co de Phone Number [facility] LAB [address] [place] [address], * Culture urine (08/18/2025 8:45 PM EDT) Culture, Urine 10,000-49,000 CFU/mL Mixed urogenital john, no uropathogens present. Suggest repeat specimen if clinically indicated. 08/20/2025 9:06 AM EDT [facility] Urine Urine specimen obtained by clean catch procedure / Unknown 08/18/2025 8:45 PM EDT 08/19/2025 12:13 PM EDT us Aroldo Dejesus MD LAB MICROBIOLOGY - GENERAL ORDE [facility] Final Result [facility] LAB [address] [place] [address], documented in this encounter Visit Diagnoses Diagnosis Dementia in other diseases classified elsewhere, unspecified severity, with mood disturbance (CMS/HCC V24, CMS/HCC V28) Altered mental status, unspecified documented in this encounter Care Teams Opto Mechanical Engineer Relationship Specialty Start Date End Date Amber Lovelace MD [facility] [place] [address] PCP - General Obstetrics and Gynecology 10/11/24 documented as of this encounter
--- OUTSIDE RECORDS SUMMARY | 2025-08-26 13:40 | XMS_ITS | Encounter Summary ---
Author Organization [employer] Address [address] [place] [address] Care Team Providers Care Manager Legal Name Role Phone Amber Lovelace MD Primary Care Provid er Encounter Details Date Type Department Care Team (Late st Contact Info) Description 10/08/2024 Lab Requisition [facility] - Main Lab [address] [place] [address] Aroldo Dejesus MD [address] [place] [phone] Other fatigue Social History Tobacco Use Types [...] reflex microscopic (10/07/2024 10:15 PM EST) Specific [place] Urine 1.020 1.003 - 1.030 LAB URINALYSIS - AUTOMATED METHOD 10/08/2024 9:33 AM EST [facility] pH, Urine 7.0 5.0 - 8.0 pH LAB URINALYSIS - AUTOMATED METHOD 10/08/2024 9:[address] [facility] Leukocytes, Urine Trace(A) Negative LAB URINALYSIS - AUTOMATED METHOD 10/08/2024 9:[address] [facility] Nitrite, Urine Negative Negative LAB URINALYSIS - AUTOMATED METHOD 10/08/2024 9:[address] [facility] Protein, Urine Negative <=Trace mg/dL LAB URINALYSIS - AUTOMATED METHOD 10/08/2024 9:[address] [facility] Glucose, Urine Negative Negative mg/dL LAB URINALYSIS - AUTOMATED METHOD 10/08/2024 9:[address] [facility] Ketones, Urine Negative Negative mg/dL LAB URINALYSIS - AUTOMATED METHOD 10/08/2024 9:[address] [facility] Urobilinogen, Urine 1.0 0.2 - 1.0 mg/dL LAB URINALYSIS - AUTOMATED METHOD 10/08/2024 9:[address] [facility] Bilirubin, Urine Negative Negative LAB URINALYSIS - AUTOMATED METHOD 10/08/2024 9:[address] [facility] Blood, Urine Negative Negative LAB URINALYSIS - AUTOMATED METHOD 10/08/2024 9:[address] [facility] RBC, Urine 2.4 0 - 4 /HPF LAB URINALYSIS - AUTOMATED METHOD 10/08/2024 9:[address] [facility] WBC, Urine 7.1(H) 0 - 4 /HPF LAB URINALYSIS - AUTOMATED METHOD 10/08/2024 9:[address] [facility] Squamous Epithelial, Urine 15 0 - 60 /LPF LAB URINALYSIS - AUTOMATED METHOD 10/08/2024 9:[address] [facility] Bacteria, Urine Negative Negative /HPF LAB URINALYSIS - AUTOMATED METHOD 10/08/2024 9:[address] [facility] Hyaline Casts, Urine 0.4 0 - 3 /LPF LAB URINALYSIS - AUTOMATED METHOD 10/08/2024 9:33 AM EST [facility] Urine Urine specimen obtained by clean catch procedure / Unknown 10/07/2024 10:15 PM EST 10/08/2024 8:58 AM EST us Aroldo Dejesus MD LAB URINE ORDERABLES Final Resu lt [facility] [address] [place] [address], [place] [phone] * Culture urine (10/07/2024 10:15 PM EST) Culture, Urine No growth 10/09/2024 9:01 AM EST [facility] Urine Urine specimen obtained by clean catch procedure / Unknown 10/07/2024 10:15 PM EST 10/08/2024 8:58 AM EST us Aroldo Dejesus MD LAB MICROBIOLOGY - GENERAL ORDE RABLES Final Result Performing Organization Address City/[facility]/ZIP Co de Phone Number [facility] [address] [place] [address], [place] [phone] documented in this encounter Visit Diagnoses Diagnosis Other fatigue documented in this encounter Care Teams Manager Legal Relationship Specialty Start Date End Date Amber Lovelace MD [facility] [place] [address] PCP - General Obstetrics and Gynecology 10/11/24 documented as of this encounter
--- OUTSIDE RECORDS SUMMARY | 2025-08-26 13:40 | XMS_ITS | Encounter Summary ---
Author Organization [employer] Address [address] [place] [address] Care Team Providers Care Direct Care Specialist Name Role Phone Amber Lovelace MD Primary Care Provid er Encounter Details Date Type Department Care Team (Late st Contact Info) Description 07/31/[address] [facility] - Main Lab [address] [place] [address] Aroldo Dejesus MD [address] [place] [phone] Vitamin D deficiency, unspecified Social History Tobacco Use Types Packs/Day [...] Procedure Name Priority Date/Time Associated Diagnosis Comments VITAMIN D 25 HYDROXY Routine 07/31/2025 4:40 AM EDT Vitamin D deficiency, unspecified documented in this encounter Results * Vitamin D 25 hydroxy (07/31/2025 4:40 AM EDT) Vit D, 25-Hydroxy 32.3 30.0 - 80.0 ng/mL LAB CHEMISTRY METHOD 07/31/2025 9:53 AM EDT [facility] ([facility]) [facility] Blood Venous blood specimen / Unknown Venipuncture / Unknown 07/31/2025 4:40 AM EDT 07/31/2025 8:14 AM EDT us Aroldo Dejesus MD LAB BLOOD ORDERABLES Final Resu lt [facility] ([facility]) HOSPITAL LAB [address] [place] [address], documented in this encounter Visit Diagnoses Diagnosis Vitamin D deficiency, unspecified documented in this encounter Care Teams Direct Care Specialist Relationship Specialty Start Date End Date Amber Lovelace MD [address] [facility] [address] [place] [address] PCP - General Obstetrics and Gynecology 10/11/24 documented as of this encounter
--- OUTSIDE RECORDS SUMMARY | 2025-08-26 13:40 | XMS_ITS | Clinical Summary ---
Author Organization [address] [facility] Address [address] [place] [address] Phone Care Team Providers Care Dog Beautician Name Role Phone Amber Lovelace MD Primary Care Provid er Encounters Date Type Department Care Team Description 08/25/2025 Lab Requisition [facility] [address] [place] [phone] Aroldo Dejesus MD Altered mental status, unspecified 08/19/2025 Lab Requisition [facility] [address] [place] [phone] Aroldo Dejesus MD Altered mental status, unspecified 08/19/2025 Lab Requisition [facility] [address] [place] [phone] Aroldo Dejesus MD Dementia in other diseases classified elsewhere, unspecified severity, with mood disturbance (CMS/HCC V24, CMS/HCC V28); Altered mental status, unspecified 07/31/2025 Lab Requisition [facility] [address] [place] [phone] Aroldo Dejesus MD Vitamin D deficiency, unspecified from Last 3 Months Social History Tobacco [...] DTaP,Tdap,and Td Vaccines (1 - Tdap) 1968 Pneumococcal Vaccine: 50+ Ye ars (1 of 1 - PCV) 1999 Zoster Vaccines (1 of 2) 1999 Falls Risk Assessment 10/25/2022 Hepatitis C Screening 10/25/2022 Medicare Annual Wellness Visit 10/25/2022 Osteoporosis Screening (Bone Density Screening) 10/25/2022 Social Influencers of Health Screening 10/25/2022 RSV Immunization Adult Patie nts (1 - 1-dose 75+ series) 2024 Depression Screening 11/27/2024 COVID-19 Vaccine (2023-2 5 season) 2025 Influenza Vaccine (#1) 2025 HIB Vaccines Aged Out No longer eligi [...] patient's age to complete this topic Meningococcal B Vaccine Aged Out No l onger eligible based on patient's age to complete this topic RSV Immunization Patients Un rosetta 20 months Aged Out No longer eligible b ased on patient's age to complete this topic Varicella Vaccines Aged Out No longer eligible based on patient's age to complete this topic Procedures Procedure Name Priority Date/Time Associated Diagnosis Comments COMPLETE BLOOD COUNT Routine 08/25/2025 6:16 AM EDT Altered mental status, unspecified COMPLETE BLOOD COUNT Routine 08/19/2025 5:59 AM EDT Altered mental status, unspecified URINALYSIS WITH REFLEX [...] V24, CMS/HCC V28) Altered mental status, unspecified VITAMIN D 25 HYDROXY Routine 07/31/2025 4:40 AM EDT Vitamin D deficiency, unspecified from Last 3 Months Results * (ABNORMAL) Complete blood count (08/25/2025 6:16 AM EDT) Only the most recent of2 resultswithin the time period is included. WBC 6.9 4.8 - 10.8 K/mcL LAB [facility] RBC 3.90 3.80 - 4.80 M/mcL LAB HEMETOLOGY METHOD [facility]25 [facility] Hemoglobin 11.5 11.5 - 16.0 g/dL LAB HEMETOLOGY METHOD [facility]/25[facility]2025 [facility] Hematocrit 38.6 35.0 - 47.0 % LAB HEMETOLOGY METHOD 08/25/2025 12:04 PM [facility] MCV 98.5(H) 79.0 - 98.0 FL LAB HEMETOLOGY METHOD 08/25/2025 12:[facility] MCH 29.3 27.0 - 32.0 pcg LAB HEMETOLOGY METHOD 08/25/2025 12:04 PM [facility] MCHC 29.8(L) 32.0 - 37.0 g/dL LAB HEMETOLOGY METHOD 08/25/2025 12:04 PM [facility] RDW 13.3 11.0 - 15.0 % LAB HEMETOLOGY METHOD 08/25/2025 12:04 PM EDT [facility] Platelets 251 130 - 400 K/mcL LAB HEMETOLOGY METHOD 08/25/2025 12:04 PM EDT [facility] MPV 10.2 7.0 - 11.0 FL LAB HEMETOLOGY METHOD 08/25/2025 12:04 PM EDT [facility] NRBC 0.0 <1.0 % LAB HEMETOLOGY METHOD 08/25/2025 12:04 PM EDT [facility] NRBC Absolute 0.00 <0.10 K/mcL LAB HEMETOLOGY METHOD 08/25/2025 12:04 PM EDT [facility] Blood Venous blood specimen / Unknown Venipuncture / Unknown 08/25/2025 6:16 AM EDT 08/25/2025 10:08 AM EDT us Aroldo Dejesus MD LAB BLOOD ORDERABLES Final Resu lt [facility] [address] [place] [address], * (ABNORMAL) Urinalysis with reflex microscopic (08/18/2025 8:45 PM EDT) Specific [place] Urine 1.035(H) 1.003 - 1.030 LAB URINALYSIS - AUTOMATED METHOD 08/19/2025 12:56 PM EDT [facility] pH, Urine 6.0 5.0 - 8.0 pH LAB URINALYSIS - AUTOMATED METHOD 08/19/2025 12:56 PM EDT [facility] Leukocytes, Urine Small(A) Negative LAB URINALYSIS - AUTOMATED METHOD 08/19/2025 12:56 PM T [facility] Nitrite, Urine Negative Negative LAB URINALYSIS - AUTOMATED METHOD 08/19/2025 12:56 PM EDT [facility] Protein, Urine Trace <=Trace mg/dL LAB URINALYSIS - AUTOMATED METHOD 08/19/2025 12:56 PM [facility] Glucose, Urine Negative Negative mg/dL LAB URINALYSIS - AUTOMATED METHOD 08/19/2025 12:56 PM [facility] Ketones, Urine 15(A) Negative mg/dL LAB URINALYSIS - AUTOMATED METHOD 08/19/2025 12:56 PM [facility] Urobilinogen , Urine 1.0 0.2 - 1.0 mg/dL LAB URINALYSIS - AUTOMATED METHOD 08/19/2025 12:56 PM [facility] Bilirubin, Urine Negative Negative LAB URINALYSIS - AUTOMATED METHOD 08/19/2025 12:56 PM [facility] Blood, Urine Negative Negative LAB URINALYSIS - AUTOMATED METHOD 08/19/2025 12:56 PM [facility] RBC, Urine 2.0 0 - 4 /HPF LAB URINALYSIS - AUTOMATED METHOD 08/19/2025 12:56 PM [facility] WBC, Urine 6.0(H) 0 - 4 /HPF LAB URINALYSIS - AUTOMATED METHOD 08/19/2025 12:56 PM [facility] Squamous Epithelial, Urine 20 0 - 60 /LPF LAB URINALYSIS - AUTOMATED METHOD 08/19/2025 12:56 PM [facility] Crystals, Urine MOD CALCIUM OXALATE /LPF LAB URINALYSIS - AUTOMATED METHOD 08/19/2025 12:56 PM [facility] Bacteria, Urine Many(A) Negative /HPF LAB URINALYSIS - AUTOMATED METHOD 08/19/2025 12:56 PM [facility] Hyaline Casts, Urine 3.0 0 - 3 /LPF LAB URINALYSIS - AUTOMATED METHOD 08/19/2025 12:56 PM [facility] Urine Urine specimen obtained by clean catch procedure / Unknown 08/18/2025 8:45 PM EDT 08/19/2025 12:13 PM EDT us Aroldo Dejesus MD LAB URINE ORDERABLES Final Resu lt Performing Organization Address [facility]/ZIP Co de Phone Number [facility] [address] [place] [address], [place] [phone] * Culture urine (08/18/2025 8:45 PM EDT) Culture, Urine 10,000-49,000 CFU/mL Mixed urogenital john, no uropathogens present. Suggest repeat specimen if clinically indicated. 08/20/2025 9:06 AM EDT [facility] Urine Urine specimen obtained by clean catch procedure / Unknown 08/18/2025 8:45 PM EDT 08/19/2025 12:13 PM EDT us Aroldo Dejesus MD LAB MICROBIOLOGY - GENERAL ORDE RABLES Final Result Performing Organization Address [facility] Co de Phone Number [facility] [address] [place] [address], [place] [phone] * Vitamin D 25 hydroxy (07/31/2025 4:40 AM EDT) Vit D, 25-Hydroxy 32.3 30.0 - 80.0 ng/mL LAB CHEMISTRY METHOD 07/31/2025 9:53 AM EDT [facility] Blood Venous blood specimen / Unknown Venipuncture / Unknown 07/31/2025 4:40 AM EDT 07/31/2025 8:14 AM EDT us Aroldo Dejesus MD LAB BLOOD ORDERABLES Final Resu lt Performing Organization Address [facility]/ZIP Co de Phone Number [facility] [address] [place] [address], [place] [phone] from Last 3 Months Insurance MEDICARE MEDICAID - [place] Care Teams Dog Beautician Relationship Specialty Start Date End Date Amber Lovelace MD [address] [facility] [address] [place] [address] PCP - General Obstetrics and Gynecology 10/11/24
--- OUTSIDE RECORDS SUMMARY | 2025-08-26 13:40 | XMS_ITS | Encounter Summary ---
Author Organization [employer] Address [address] [place] [address] Care Team Providers Care Stud Dairy Cattle Farmer Name Role Phone Amber Lovelace MD Primary Care Provid er Encounter Details Date Type Department Care Team (Late st Contact Info) Description 11/26/2024 Lab Requisition [facility] - Main Lab [address] [place] [address] Aroldo Dejesus MD [address] [place] [phone] Parkinsonism, unspecified (CMS/HCC V24, CMS/HCC V28) Social History Tobacco Use Types Packs/Day Years [...] LAB CHEMISTRY METHOD 11/28/2024 11:23 AM EST [facility] Potassium 4.4 3.5 - 5.5 mmol/L LAB CHEMISTRY METHOD 11/28/2024 11:23 AM EST [facility] Chloride 106 96 - 110 mmol/L LAB CHEMISTRY METHOD 11/28/2024 11:23 AM [facility] CO2 30 21 - 32 mmol/L LAB CHEMISTRY METHOD 11/28/2024 11:23 AM [facility] Anion Gap 2(L) 3 - 11 LAB CHEMISTRY METHOD 11/28/2024 11:23 AM [facility] Glucose 77 70 - 100 mg/dL LAB CHEMISTRY METHOD 11/28/2024 11:23 AM [facility] BUN 15 5 - 25 mg/dL LAB CHEMISTRY METHOD 11/28/2024 11:23 AM [facility] Creatinine 0.86 0.50 - 1.10 mg/dL LAB CHEMISTRY METHOD 11/28/2024 11:23 AM [facility] eGFR 71 >=60 mL/min/1. 73m2 LAB CHEMISTRY METHOD 11/28/2024 11:23 AM [facility] Comment:Calculation based on the Chronic Kidney Disease Epidemiology Collaboration (CKD-EPI) equation refit without adjustment for race. BUN/Creatinine Ratio 17.4 LAB CHEMISTRY METHOD 11/28/2024 11:23 AM [facility] Calcium 8.2(L) 8.5 - 10.5 mg/dL LAB CHEMISTRY METHOD 11/28/2024 11:23 AM [facility] Blood Venous blood specimen / Unknown Venipuncture / Unknown 11/28/2024 7:22 AM EST 11/28/2024 10:01 AM EST us Aroldo Dejesus MD LAB BLOOD ORDERABLES Final Resu lt [facility] [address] [place] [address], [place] [phone] * (ABNORMAL) Complete blood count (11/28/2024 7:22 AM EST) WBC 6.1 4.8 - 10.8 K/mcL LAB HEMETOLOGY METHOD 11/28/2024 10:51 AM [facility] RBC 3.90 3.80 - 4.80 M/mcL LAB HEMETOLOGY METHOD 11/28/2024 10:51 AM [facility] Hemoglobin 11.6 11.5 - 16.0 g/dL LAB HEMETOLOGY METHOD 11/28/2024 10:51 AM [facility] Hematocrit 38.8 35.0 - 47.0 % LAB HEMETOLOGY METHOD 11/28/2024 10:51 AM [facility] MCV 98.5(H) 79.0 - 98.0 FL LAB HEMETOLOGY METHOD 11/28/2024 10:51 AM [facility] MCH 29.4 27.0 - 32.0 pcg LAB HEMETOLOGY METHOD 11/28/2024 10:51 AM [facility] MCHC 29.9(L) 32.0 - 37.0 g/dL LAB HEMETOLOGY METHOD 11/28/2024 10:51 AM [facility] RDW 13.5 11.0 - 15.0 % LAB HEMETOLOGY METHOD 11/28/2024 10:51 AM [facility] Platelets 260 130 - 400 K/mcL LAB HEMETOLOGY METHOD 11/28/2024 10:51 AM [facility] MPV 9.5 7.0 - 11.0 FL LAB HEMETOLOGY METHOD 11/28/2024 10:51 AM [facility] NRBC 0.0 <1.0 % LAB HEMETOLOGY METHOD 11/28/2024 10:51 AM [facility] NRBC Absolute 0.00 <0.10 K/mcL LAB HEMETOLOGY METHOD 11/28/2024 10:51 AM [facility] Blood Venous blood specimen / Unknown Venipuncture / Unknown 11/28/2024 7:22 AM EST 11/28/2024 10:01 AM EST us Aroldo Dejesus MD LAB BLOOD ORDERABLES Final Resu lt [facility] ([facility] [address] [place] [address], documented in this encounter Visit Diagnoses Diagnosis Parkinsonism, unspecified (CMS/HCC V24, CMS/HCC V28) documented in this encounter Care Teams Stud Dairy Cattle Farmer Relationship Specialty Start Date End Date Amber Lovelace MD [address] [facility] [address] [place] [address] PCP - General Obstetrics and Gynecology 10/11/24 documented as of this encounter
--- OUTSIDE RECORDS SUMMARY | 2025-08-26 13:40 | XMS_ITS | Encounter Summary ---
Author Organization [employer] Address [address] [place] [address] Care Team Providers Care Band Sewer Name Role Phone Amber Lovelace MD Primary Care Provid er Encounter Details Date Type Department Care Team (Late st Contact Info) Description 12/25/2024 Lab Requisition [facility] - Main Lab [address] [facility] [place] [address] Aroldo Dejesus MD [address] [place] [id number] Unspecified dementia, unspecified severity, without behavioral disturbance, psychotic disturbance, mood disturbance, and anxiety (CMS/HCC V24, CMS/HCC V28); Anemia, unspecified Social History Tobacco Use Types [...] K/mcL LAB HEMETOLOGY METHOD 12/25/2024 2:50 PM [facility] RBC 4.00 3.80 - 4.80 M/mcL LAB HEMETOLOGY METHOD 12/25/2024 2:50 PM [facility] Hemoglobin 11.7 11.5 - 16.0 g/dL LAB HEMETOLOGY METHOD 12/25/2024 2:50 PM [facility] Hematocrit 39.3 35.0 - 47.0 % LAB HEMETOLOGY METHOD 12/25/2024 2:50 PM [facility] MCV 97.8 79.0 - 98.0 FL LAB HEMETOLOGY METHOD 12/25/2024 2:50 PM [facility] MCH 29.1 27.0 - 32.0 pcg LAB HEMETOLOGY METHOD 12/25/2024 2:50 PM [facility] MCHC 29.8(L) 32.0 - 37.0 g/dL LAB HEMETOLOGY METHOD 12/25/2024 2:50 PM [facility] RDW 12.9 11.0 - 15.0 % LAB HEMETOLOGY METHOD 12/25/2024 2:50 PM [facility] Platelets 244 130 - 400 K/mcL LAB HEMETOLOGY METHOD 12/25/2024 2:50 PM [facility] MPV 9.6 7.0 - 11.0 FL LAB HEMETOLOGY METHOD 12/25/2024 2:50 PM [facility] NRBC 0.0 <1.0 % LAB HEMETOLOGY METHOD 12/25/2024 2:50 PM [facility] NRBC Absolute 0.00 <0.10 K/mcL LAB HEMETOLOGY METHOD 12/25/2024 2:50 PM [facility] Neutrophils Relative 54.9 % LAB HEMETOLOGY METHOD 12/25/2024 2:50 PM [facility] Lymphocytes Relative 35.3 % LAB HEMETOLOGY METHOD 12/25/2024 2:50 PM [facility] Monocytes Relative 7.8 % LAB HEMETOLOGY METHOD 12/25/2024 2:50 PM [facility] Eosinophils Relative 1.4 % LAB HEMETOLOGY METHOD 12/25/2024 2:50 PM [facility] Basophils Relative 0.4 % LAB HEMETOLOGY METHOD 12/25/2024 2:50 PM [facility] Immature Granulocytes Relative 0.2 % LAB HEMETOLOGY METHOD 12/25/2024 2:50 PM [facility] Neutrophils Absolute 2.83 1.50 - 7.00 K/mcL LAB HEMETOLOGY METHOD 12/25/2024 2:50 PM [facility] Lymphocytes Absolute 1.82 1.00 - 5.00 K/mcL LAB HEMETOLOGY METHOD 12/25/2024 2:50 PM [facility] Monocytes Absolute 0.40 0.20 - 1.00 K/mcL LAB HEMETOLOGY METHOD 12/25/2024 2:50 PM [facility] Eosinophils Absolute 0.07 0.00 - 0.50 K/mcL LAB HEMETOLOGY METHOD 12/25/2024 2:50 PM [facility] Basophils Absolute 0.02 0.00 - 0.20 K/mcL LAB HEMETOLOGY METHOD 12/25/2024 2:50 PM [facility] Immature Granulocytes Absolute 0.01 0.00 - 0.03 K/mcL LAB HEMETOLOGY METHOD 12/25/2024 2:50 PM [facility] Blood Venous blood specimen / Unknown Venipuncture / Unknown 12/25/2024 2:14 PM EST 12/25/2024 2:40 PM EST us Rami A Ashkar MD LAB BLOOD ORDERABLES Final Resu lt [facility] ([facility]) [facility] [address] [place] [address], documented in this encounter Visit Diagnoses Diagnosis Unspecified dementia, unspecified severity, without behavioral disturbance, psychotic disturbance, mood disturbance, and anxiety (CMS/HCC V24, CMS/HCC V28) Anemia, unspecified documented in this encounter Care Teams Band Sewer Relationship Specialty Start Date End Date Amber Lovelace MD [address] [place] [address] PCP - General Obstetrics and Gynecology 10/11/24 documented as of this encounter
--- OUTSIDE RECORDS SUMMARY | 2025-08-26 13:40 | XMS_ITS | Data Portability ---
Author Organization [facility] [employer] [facility], Main Office Address [address] [place] [address] Care Team Providers Care Stone Layer Name Role Phone [facility] Assessment Encounter Date Assessment Date Assessment LastModified by Organization Details LastModified Time 05/06/2024 05/06/2024 01/10/24: wbc 7.22, hgb 12.0, hct 40.2, PLT 280, na 141, K 4.3, BUN/Cr 22/0.7 10/24: wbc 8.96, hgb 21.1, hct 39.5 10/09: na 144, K 3.8, BUN/Cr 17/0.8 04/05: na 141, k 4.2, bun/cr 14/.8, wbc 7.38, H+H 12.2/40.7, mcv 97.1, mchc 30 atremblaydavid Not available 05/06/2024 09:04:10 Plan of Treatment Reminders Order Date Submit Date Provider Last Modified By Organization Details Last Modified Time Details Appointments None record ed. Lab None record ed. Referral None record ed. Procedures None record ed. Surgeries None record ed. Imaging None record ed. Medication Orders None record ed. Patient TargetsNo targets recorded. Patient InstructionsNo instructions recorded. Reason for Referral None Reported. Problems Name Problem SNOMED Code Status Onset Date Resolution Date Notes Provider Name and Address Organization Details Recorded Time Hypothyroid ism 28033344 Active 2022 Shayne Webster NP [address] , [address], [place], [address], [facility] [employer] 09:53:47 Depressive disorder 70753192 Active 2022 Shayne Webster NP [address] [facility], [address], [place], [address], [facility] 3 09:53:56 Chronic constipatio n 244574282 Active 2022 Shayne Webster NP [address], [address], [place], [address], [facility] 3 09:54:07 Insomnia 725513615 Active 2022 Shayne Webster NP [address], [address], [place], [address], [facility] 3 09:55:32 Hallucinati ons 0226386 Active 2022 Shayne Webster NP [address], [address], [place], [address], [facility] 3 10:13:27 Parkinson's disease 20545126 Active 2022 Shayne Webster NP [address], [address], [place], [address], [facility] 3 10:18:50 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 114753619 Active 2022 Anthony Harper MD [address], [address], [place], [address], [facility] 3 07:49:22 Unsteady when walking 07145620 Active 2022 Shayne Webster NP [address], [address], [place], [address], [facility] 3 09:17:11 Impaired cognition 996648548 Active 2022 Shayne Webster NP [address], [address], [place], [address], [facility] 3 09:17:11 Mixed anxiety and depressive disorder 415332380 Active 2022 Shayne Webster NP [address], [address], [place], [address], [facility] 3 14:48:22 Chronic pain 42000111 Active 2022 Shayne Webster NP [address] [facility], [address], [place], [address], [facility] 3 14:48:22 Itching of eye 40839718 Active 2022 Shayne Webster NP [address] [facility], [address], [place], [address], [facility] 3 13:43:30 Recurrent falls 517418664 Active 2023 Jacobo Akbar [address] [facility], [address], [place], [address], [facility] 4 18:37:13 Atypical chest pain 295001403 Active 2023 Jacobo Akbar [address] [facility] [facility] [address], [address], [place], [address], [facility] 4 18:40:47 Pain of right knee joint 3279982359150 00 Active 2023 Jacobo Akbar [address] [facility], [address], [place], [address], [facility] 4 18:40:48 Dyspnea 025862592 Active 2023 Jacobo Akbar [address] [facility], [address], [place], [address], [facility] 4 18:40:51 Excessive salivation 42210284 Active 2023 Jacobo Akbar [address] [place] [address], [address], [place], [address], [facility] 4 11:36:46 Problem Notes None recorded. Medical Equipment None Reported. Allergies Allergen ID Allergen Name Allergen Category Reaction Reaction Severity Criticality Documentation Date Start Date Code Code System Note Provider Name and Address Organization Details Recorded Time 03114 citalopra m medicatio n Not available Not available Not available 01/17/2023 2556 RxNorm Shayne Webster NP [address] [facility], [address], [place], [address], [facility] 3 09:46:18 42184 [employer] environme nt,medica tion Not available Not available Not available 01/17/2023 17592 6 RxNorm Shayne Webster NP [address] [facility], [address], [place], [address], [facility] [employer] 09:46:27 Vitals None Recorded Social History Question Answer Notes LastModified by Organizat ion Details LastModified Time Tobacco Smoking Status Never Smoker Amada Davis MD [address] [facility] [address] [facility], [address], [place], [address], [facility] 10/02/2023 21:22:17 Do You Have An Advance Directive? Yes Information not available 01/17/2023 What Is Your Code Status? DNR/DNI May Transfer To Hospital Use: Dialysis, Artificial Nutrition, Artificial Hydration [facility]OLST 05/12/21 Information not available 01/17/2023 [facility] Information not available 10/02/2023 Legal Guardian? No Informati on not available 10/02/2023 Do You Have A Medical Power Of Insurance Adjuster? Yes HCP Invoked 05/18/21 Information not available 04/06/2023 What Was The Date Of Your Most Recent Tobacco Screening? 10/02/2023 Information not available 10/02/2023 Do You Have An Out Of Hospital DNR? Yes Information not available 01/17/2023 What Is Your Relationship Status? Information not available 10/02/2023 Has Tobacco Cessation Counseling Been Provided? No N/a As Pt Doesn't Smoke Information not available 10/02/2023 Sex: Female Functional Status Question Answer Note LastModified by Organizat ion Details LastModified Time Do you use any illicit or recreational drugs? No Information not available 10/02/2023 Do you or have you ever used any other forms of tobacco or nicotine? No Information not available 10/02/2023 What is your level of alcohol consumption? None Information not available 10/02/2023 Mental Status None recorded. Family History Nothing Reported Notes:N/C Medical History No medical history recorded. Gynecological HistoryNo gynecological history recorded. Obstetrics History GPAL:G 0 P 0 0 0 0 Immunizations Vaccine Type Date Status Note Provider Nam e and Address Organization Details Recorded Time Influenza, adjuvanted, quadrivalent, PF 09[facility]06[facility]2023 [facility] 11:32:42 COVID-19, mRNA, LNP-S, PF, 50 mcg/0.5 mL 10/23/2023 completed Arlyn regalado [facility] 12/19/2023 11:35:53 Past Encounters Encounter ID Performer Location Encounter Start Date Encounter Closed Date Diagnosis/Indication Diagnosis SNOMED-CT Code Diagnosis ICD10 Code Diagnosis IMO Codes Diagnosis Note [id number] KAITLYNN Sheets [address] [place] [address] 01/17/2023 09:44:18 01/19/2023 07:53:24 Chronic constipation 406321807 K59.09 01/17monito r bowel movementsM iraLax Oral Powder 17 GM/SCOOP PRN Depressive disorder 3548 9007 F32.A ito r mood/behav iorpsych PRNbuPROPi on HCl ER (XL) 300mg Oral Tablet Extended Release 24 Hour Hypothyroidism 80111363 E03.9 ito r labsSynthr oid Oral Tablet 112 MCG Insomnia 895260567 G47.0 0 ito r mood/behav iorpsych PRN Hallucinations 9706793 R 44.3 ito r mood/behav iorpsych PRNOlanzap ine 2.5mg PO QD Parkinson's disease 4904 9000 G20 01/17neuro FU PRNRasagil ine Mesylate Oral Tablet 1 MG PO QD [id number] Anthony Harper MD [facility] [address] [place] [address] 01/20/2023 07:45:00 01/23/2023 09:05:33 Unsteady when walking 01410906 R26.89 Therapy to eval and treatdeter mine baselinemo nitor fall risk 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 766745694 F22 patient maintained on zyprexa for apparent hallucinat ions associated with progressiv e parkinsons psych to evalmonito r for sx Chronic constipation 236 843978 K59.09 bowel protocolmo nitor for effect Depressive disorder 3548 9007 F33.8 stable on wellbutrin continuedm onitor for change as patient adjusts to facility Hypothyroidism 88106055 E03.8 synthroid 112 mcg qdcontinue dmonitor tsh Parkinson's disease 4904 9000 G20 rasagiline 1 mg qdrytary 2 tabs 5x per daymonitor for sx controlupd ate neuro with concerns Impaired cognition 69526 6002 R41.89 unsure of baseline was invoked at prior facilityin voked at facility [facility] invoke prn [id number] CHRISTINE HERNANDEZ [address] [place] [address] 01/26/2023 14:07:43 01/30/2023 10:10:42 Unsteady when walking 87491375 R26.89 continue PT as ablewheelc hair for safety Parkinson's disease 4904 9000 G20 rasagiline 1 mg qdrytary 2 tabs 5x per daymonitor for sx controlupd ate neuro with concerns 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 348248515 F22 zyprexa 2.5 mg for apparent hallucinat ions associated with progressiv e parkinsons psych to eval- question a GDR for this?monit or02/03 cont above plan of care Impaired cognition 65930 6002 R41.89 unsure of baseline was invoked at prior facilityin voked at facility [facility] to evalmonito r mood/behav iorreasses s invoke prn3/10 cont above plan of care Depressive disorder 3548 9007 F33.8 wellbutrin 300 mg dailyremer on 15 mg dailytrazo done 50 mg dailymonit or mood.behav iorpsych PRN3/10 cont above plan of care [id number] KAITLYNN Sheets [address] [place] [address] 02/17/2023 12:34:39 02/20/2023 09:53:28 Depressive disorder 89964717 F33.8 wellbutrin 300 mg dailyremer on 15 mg dailytrazo done 50 mg dailymonit or mood.behav iorpsych PRN 02/17: psych rec from 02/14: reduce remeron 7.5 mg daily due to elevate EKG. and obtain ekg in 3 weeks [id number] KAITLYNN Sheets [address] [place] [address] 02/20/2023 12:45:48 02/22/2023 08:56:05 Depressive disorder 77348603 F33.8 wellbutrin 300 mg dailyremer on 15 mg dailytrazo done 50 mg dailymonit or mood.behav iorpsych PRN 02/17: psych rec from 02/14: reduce remeron 7.5 mg daily due to elevate EKG. 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 943723489 F22 zyprexa 2.5 mg for apparent hallucinat ions associated with progressiv e parkinsons psych to eval- question a GDR for this?monit or3/ cont above plan of care Impaired cognition 89228 6002 R41.89 unsure of baseline was invoked at prior facilityin voked at facility [facility] to evalmonito r mood/behav iorreasses s invoke prn3/ cont above plan of care [id number] Adelia Henderson MD [facility] [address] [place] [address] 03/17/2023 05:55:46 03/22/2023 13:58:45 Impaired cognition 195614795 R41.89 will monitor and support as needed Parkinson's disease 4904 9000 G20 rasagiline 1 mg dailyCarbi dopa-Levod opa 36.35-145: 2 capsules 5 times a daypimavan serin 34 mg at hswill monitorneu rology prn Mixed anxi ety and depressive disorder 455134457 F41.8 with history psychosis: olanzapine 2.5 mg daily and 7.5 mg dailymirta zapine 7.5 mg at hsbupropio n XL 300 mg daily Chronic pain 46999614 G8 9.29 Lidocaine patch to right knee dailyAPAP 650 mg q6h prnAPAP 650 mg tidPT/OT prnwill monitor [id number] KAITLYNN Sheets [address] [place] [address] 03/29/2023 13:24:05 04/03/2023 09:37:20 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 520713561 F22 zyprexa 2.5 mg for apparent hallucinat ions associated with progressiv e parkinsons psych to eval- question a GDR for this?monit or/ increase zyprexa to 5mg PO QAM and 7.5mg PO QHSFU with UNDERGROUND UTILITY LOCATOR at [facility] on 08/01/23 (Milan King NP [id number] KAITLYNN Sheets [address] [place] [address] 03/31/2023 09:48:03 04/03/2023 10:42:17 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 350588674 F22 zyprexa 2.5 mg for apparent hallucinat ions associated with progressiv e parkinsons psych to eval- question a GDR for this?monit or5/ increase zyprexa to 5mg PO QAM and 7.5mg PO QHSFU with UNDERGROUND UTILITY LOCATOR at [facility] on 08/01/23 (Milan King NP5/5 psych recs to start zyprexa 2.5mg PO Q 24hrs/PRN x 14 days for DX psychosis [id number] Shayne Webster NP [facility] [address] [place] [address] 04/06/2023 11:56:14 04/12/2023 08:13:53 Impaired cognition 851230120 R41.89 will monitor and support as neededsee mixed anxiety/de pression for medication list and interventi on Parkinson's disease 4904 9000 G20 04/06monito r s/sneurolo gy PRN-rasagi line 1 mg daily-Carb idopa-Levo dopa 36.35-145: 2 capsules 5 times a day-pimava nserin 34 mg at hs Mixed anxi ety and depressive disorder 311201978 F41.8 04/06with history psychosis: monitor mood/behav iorpsych followings upportive careHCP invoked 05/18/21exp ected decline-ol anzapine 7.5 mg QHS--03/31 psych recs to start zyprexa 2.5mg PO Q 24hrs/PRN x 14 days for DX psychosis- mirtazapin e 7.5 mg at hs-traZODo ne 50mg tab po QHS (depressio n)-bupropi on XL 300 mg daily Chronic pain 77722856 G8 9.29 04/06PT/OT prnwill monitor-Li docaine patch to right knee daily-APAP 650 mg q6h prn-APAP 650 mg tid (not to exceed 3g in 24hours) 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 313811534 F22 04/06see mixed anxiety/de pression for additional meds/inter ventionsha llucinatio ns related to parkinson' s diseasepsy ch following at facility and [facility] on 08/01/23 (Milan King UNDERGROUND UTILITY LOCATOR-zyprexa 7.5mg PO QHS-03/31 psych rec's to start zyprexa 2.5mg PO Q 24hrs/PRN x 14 days for DX psychosis Fall W19.XXXA 04/06PT/OT PRNreduce fall risk as able04/05 unwitnesse d fall with no injury notedmonit or [id number] Adelia Henderson MD [facility] [address] [place] [address] 06/02/2023 06:23:50 06/05/2023 13:17:09 Parkinson's disease 46691708 G20 rasagiline 1 mg dailyCarbi dopa-Levod opa 36.25-145: 2 capsules 5 times a daypimavan serin 34 mg at hswill monitorneu rology prn Mixed anxi ety and depressive disorder 281508582 F41.8 with history psychosis and delusions: olanzapine 2.5 mg daily and 7.5 mg dailymirta zapine 7.5 mg at hsbupropio n XL 300 mg dailytrazo done 50 mg at hswill monitorHDB H prn Hypothyroidism 82850232 E03.8 levothyrox ine 112 mcg dailywill monitor Chronic pain 88076841 G8 9.29 Lidocaine patch to right knee dailyAPAP 650 mg q6h prnAPAP 650 mg tidPT/OT prnwill monitor [id number] KAITLYNN Sheets [address] [place] [address] 06/15/2023 08:12:02 06/19/2023 09:41:51 Mixed anxiety and depressive disorder 997442738 F41.8 06/15/23wit h history psychosis: monitor mood/behav iorpsych followings upportive careHCP invoked 05/18/21exp ected decline-ol anzapine 7.5 mg QHS-mirtaz apine 7.5 mg at hs-traZODo ne 50mg tab po QHS (depressio n)-bupropi on XL 300 mg dailyzypre xa 2.5mg PO Q24hrs as needed x 14 days for DX psychosis thats zay burroughs [id number] KAITLYNN Sheets [address] [place] [address] 06/30/2023 11:22:18 07/03/2023 12:57:24 Fall W19.XXXA 8/4PT/OT PRNreduce fall risk as able5/10 unwitnesse d fall with no injury notedmonit or 06/29 with unwitnesse d fall with no acute injury noted poor safety awareness and DC of parkinsons and impaired cognition [id number] Shayne Webster NP [facility] [address] [place] [address] 07/13/2023 07:57:01 07/20/2023 10:56:00 Mixed anxiety and depressive disorder 278812041 F41.8 07/13/23wit h history psychosis: monitor mood/behav iorpsych followings upportive careHCP invoked 05/18/21exp ected decline -mirtazapi ne 7.5 mg at hs-traZODo ne 50mg tab po QHS (depressio n)-bupropi on XL 300 mg daily increase zyprexa from 12.5mg po daily to 15mg po qd R/T ongoing psychosis [id number] Shayne Webster NP [facility] [address] [place] [address] 07/20/2023 08:24:22 07/27/2023 14:25:28 Mixed anxiety and depressive disorder 777788248 F41.8 07/20/23wit h history psychosis: monitor mood/behav iorpsych followings upportive careHCP invoked 05/18/21exp ected decline -mirtazapi ne 7.5 mg at hs-trazodo ne 50mg tab po QHS (depressio n)-bupropi on XL 300 mg daily-zypr exa 17.5mg PO QD Fall W19.XXXA 07/20PT/OT PRNreduce fall risk as able5/10 unwitnesse d fall with no injury notedmonit or 06/29 with unwitnesse d fall with no acute injury noted poor safety awareness and DC of parkinsons and impaired cognition Hypothyroidism 94681340 E03.8 07/20monito r labs-Synth roid Oral Tablet 112 MCG [id number] Shayne Webster NP [facility] [address] [place] [address] 08/14/2023 06:58:08 08/16/2023 13:15:28 Mixed anxiety and depressive disorder 732192513 F41.8 08/14/23wit h history psychosis: monitor mood/behav iorpsych followings upportive careHCP invoked 05/18/21exp ected decline -mirtazapi ne 7.5 mg at hs-trazodo ne 50mg tab po QHS (depressio n)-bupropi on XL 300 mg daily-zypr exa 17.5mg PO QD psych on 08/10/23: Suggest adding zyprexa 2.5mg po prn q 24 hrs for distressin gpsychosis x 14 days, if pattern of sx and prn use emerges, HDwill re-evaluat e pt and med regimen. [id number] Shayne Webster NP [facility] [address] [place] [address] 08/30/2023 13:36:59 09/05/2023 08:17:28 Itching of eye 83698962 L29.8 08/30 to bilateral eyemonitor -Ketotifen Fumarate Ophthalmic Solution 0.025 % 1 drop BIDstart artificial tears (house stock) 2 drops per eye every 4 hours as needed. [id number] KAITLYNN Sheets [address] [place] [address] 08/31/2023 07:21:10 09/05/2023 09:23:21 Mixed anxiety and depressive disorder 283124344 F41.8 08/31/23wit h history psychosis: monitor mood/behav iorpsych followings upportive careHCP invoked 05/18/21exp ected decline -mirtazapi ne 7.5 mg at hs-trazodo ne 50mg tab po QHS (depressio n)-bupropi on XL 300 mg daily-zypr exa 17.5mg PO QD re-order zyprexa 2.5mg prn q 24 hrs for psychosis x 14days. if pattern of sx and prn use continues, HD will re-evaluat ept and med regimen. [id number] MD DAVID White [address] [place] [address] 10/02/2023 19:02:54 10/04/2023 13:40:30 Mixed anxiety and depressive disorder 152637355 F41.8 As above. Parkinson's disease 4904 9000 G20.B2 Continue rasagiline 1 mg qd, Rytary 36.25/145 mg 2 caps 5x/day, and Nourianz 20 mg qd.Monitor sxsF/U with neuro as planned. Hypothyroidism 51345124 E03.8 Last TSH 09/2022 was 5.84 with nl IR0Ghenjby e levothyrox ine 112 mcg qdMonitor TSH yearly, will order with next labs. 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 Psych follows. Fall W19.XXXA Remains a fall risk.Needs PT/OT for strengthen ing, balance, gait training, safety and function, when covered by insurance. Continue fall precaution s.Monitor for safety. [id number] Shayne Webster NP [facility] [address] [place] [address] 10/27/2023 10:31:08 10/31/2023 15:24:33 Fall W19.XXXA 12/1PT/OT PRNreduce fall risk as able04/05 unwitnesse d fall with no injury notedmonit or 06/29 with unwitnesse d fall with no acute injury noted poor safety awareness and DC of parkinsons and impaired cognition Patient with unwit fall on 10/27 with no acute injury [id number] Janie HERNANDEZ [address] [place] [address] 12/12/2023 08:00:40 12/14/2023 13:26:53 Dyspnea 266914785 R06.00 SOBE with respirator y cracklesch jeny CXR today /o pulm processCBC w/diff, CMP to be drawn todaymonit or respirator y status Pain of ri ght knee joint 6231465498 81942 M25.561 lidocaine patch to right kneeno signs of infectionm onitor pain Atypical chest pain 1025 11160 R07.89 midsternal /epigastri c pain to palpations uspect GERD vs PNAcheck CXRCBC w/diff, CMPomepraz ole 20mg BID x 14 daysmonito r Fall 0654174 W19.XXXA Remains a fall risk.Needs PT/OT for strengthen ing, balance, gait training, safety and function, when covered by insurance. Continue fall precaution s.Monitor for safety. 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 Psych follows. Parkinson's disease 4904 9000 G20.B2 Continue rasagiline 1 mg qd, Rytary 36.25/145 mg 2 caps 5x/day, and Nourianz 20 mg qd.Monitor sxsF/U with neuro as planned. Mixed anxi ety and depressive disorder 164758253 F41.8 As above. Hypothyroidism 69617527 E03.8 10/09: TSH 0.96euthyr oid on examContin ue levothyrox ine 112 mcg qdMonitor TSH yearly Chronic pain 03265893 G8 9.29 Continue Lidocaine patch to right knee daily, APAP 650 mg q6h prn and APAP 650 mg TIDPT/OT when ableMonito r Impaired cognition 43480 6002 R41.89 As above.Like ly due to Parkinson' s Insomnia 962682785 G47.0 0 trazodone 50mg qhs [id number] MD DAVID Power [address] [place] [address] 01/26/2024 06:28:00 01/29/2024 13:15:22 Impaired cognition 251982765 R41.89 will monitor and support as needed Mixed anxi ety and depressive disorder 553270993 F41.8 with history psychosis and delusions: olanzapine 15 mg at hsmirtazap ine 7.5 mg at hsbupropio n XL 300 mg dailytrazo done 50 mg at hswill monitorHDB H prn Parkinson's disease 4904 9000 G20.A1 rasagiline 1 mg dailycarbi dopa-levod opa 36.25-145: 2 capsules 5 times dailypimav anserin 34 mg at hsistradef ylline 20 mg dailywill monitor Chronic pain 34064119 G8 9.29 Lidocaine patch to right knee dailyAPAP 650 mg q6h prnAPAP 650 mg tidPT/OT prnwill monitor Hypothyroidism 46396107 E03.8 levothyrox ine 112 mcg dailywill monitor [id number] Janie HERNANDEZ [address] [place] [address] 02/01/2024 07:02:31 02/08/2024 10:04:21 Dyspnea 712532881 R06.00 resolved Pain of ri ght knee joint 9198689654 15557 M25.561 lidocaine patch qdaymonito r pain Atypical chest pain 1025 59979 R07.89 improved with 14 day course PPI 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 Psych follows. Impaired cognition 08454 6002 R41.89 As above.Like ly due to Parkinson' s Parkinson's disease 4904 9000 G20.B2 Continue rasagiline 1 mg qd, Rytary 36.25/145 mg 2 caps 5x/day, and Nourianz 20 mg qd.Monitor sxsF/U with neuro as planned. Mixed anxi ety and depressive disorder 573499287 F41.8 As above. Hypothyroidism 07068776 E03.8 10/09: TSH 0.96euthyr oid on examContin ue levothyrox ine 112 mcg qdMonitor TSH yearly Chronic pain 13491588 G8 9.29 Continue Lidocaine patch to right knee daily,APAP 650 mg q6h prn and APAP 650 mg TIDPT/OT when ableMonito r Insomnia 267527191 G47.0 0 trazodone 50mg qhs Recurrent falls 90827920 2 R29.6 04/05/23, 06/29/23, 10/27/23Rem ains a fall risk.Needs PT/OT for strengthen ing, balance, gait training, safety and function, when covered by insurance. Continue fall precaution s.Monitor for safety. [id number] LeilaniNuvia [address] [place] [address] 02/09/2024 11:32:08 02/12/2024 12:45:21 Excessive salivation 53877982 K11.7 f/u neurology yesterdayp lans to submit PA for botoxconti nubarbie current medication sf/u 06/19/24 Parkinson's disease 4904 9000 G20.B2 Continue rasagiline 1 mg qd, Rytary 36.25/145 mg 2 caps 5x/day, and Nourianz 20 mg qd.Monitor sxsF/U with neuro as planned. 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 Psych follows. [id number] Janie [address] [place] [address] 02/20/2024 13:20:56 02/27/2024 16:19:38 Malaise and fatigue 045832280 R53.81 increasing fatigue w/out URI sxslungs dim with crackleswi ll check CXR r/o PNAcheck CBC w/diff and BMP todaywill monitor Dribbling from mouth 703 15210 K11.7 neurologic ally intactable to take a sip of water without noted dribbling from this writerwill check labs [id number] Janie HERNANDEZ [address] [place] [address] 02/21/2024 12:07:33 02/27/2024 16:24:44 Community acquired pneumonia 517242602 J18.9 will treat with doxycyclin e 100mg 1 capsule BID x 7 daysAzithr omycin 500mg x 1 then 250mg qd x 4 dayscultur louann 1 capsule BID x 10 daysrepeat CXR 1 month for resolution [id number] Janie HERNAN[address] [place] [address] 03/21/2024 09:47:45 03/25/2024 08:57:18 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 Psych follows. [id number] Janie HERNAN[address] [place] [address] 03/27/2024 07:44:01 04/02/2024 10:36:46 Excessive salivation 57204884 K11.7 follows neurologyp lans to submit PA for botoxconti nue current medication sf/u 06/19/24 Parkinson's disease 7239 9650 G20.B2 Continue rasagiline 1 mg qd, Rytary 36.25/145 mg 2 caps 5x/day, and Nourianz 20 mg qd.Monitor sxsF/U with neuro as planned. 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 Psych follows. 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 Psych follows. 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 Psych follows. [id number] [facility]ie [facility] [address] [place] [address] 05/06/2024 07:47:44 05/09/2024 10:18:54 Pain of right knee joint 2680563714 22919 M25.561 lidocaine patch qdaymonito r pain Recurrent falls 55659215 2 R29.6 04/05/23, 06/29/23, 10/27/23Rem ains a fall risk.Needs PT/OT for strengthen ing, balance, gait training, safety and function, when covered by insurance. Continue fall precaution s.Monitor for safety. 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 Psych follows. Mixed anxi ety and depressive disorder 889803249 F41.8 As above. Impaired cognition 28080 6002 R41.89 As above.Like ly due to Parkinson' s Parkinson's disease 4904 9000 G20.B2 Continue rasagiline 1 mg qd, Rytary 36.25/145 mg 2 caps 5x/day, and Nourianz 20 mg qd.Monitor sxsF/U with neuro as planned. Hypothyroidism 07300926 E03.8 10/09: TSH 0.96euthyr oid on examContin ue levothyrox ine 112 mcg qdMonitor TSH yearly Chronic pain 36562065 G8 9.29 Continue Lidocaine patch to right knee daily,APAP 650 mg q6h prn and APAP 650 mg TIDPT/OT when ableMonito r Insomnia 334638078 G47.0 0 trazodone 50mg qhs Health Concerns Section Related Observation LastModified by Organization Detai ls LastModified Time None Recorded Concern Status LastModified by Organization Details LastModified Time None Recorded Advance Directives Directive Y: Payers Insurance Date Sequence Insurance Name Policy Number Policy Smith Covered Member ID Smith Member ID Guarantor Name 04/12/2024 1 [facility] - DOS ON OR AFTER 2023 - ONE CARE (MEDICARE REPLACEMENT/AD VANTAGE - HMO) Melinda Palacios [id number] Melinda Palacios 05/06/2024 1 [place] [employer] Melindaandrzej Hillsalejandra Helton [id number] Melinda Palacios 05/06/2024 2 [place] [facility] Melinda Philip Helton [id number] Melinda Palacios 04/12/2024 1 [facility] - DOS PRIOR TO 2023 - DUAL ELIGIBLE (MEDICARE REPLACEMENT/AD VANTAGE - HMO) Melinda Philip [id number] Melinda Palacios Notes Date Note Type Note Provider Name and Address Organization Details Recorded Time 03/21/2024 text/html This is a 74 yof being seen for acute visit Medical history is remarkable for Parkinson's disease, hypothyroidism, unsteady gait, OA, depression, cognitive impairment Patient followed by [facility] with most recent visit on 03/18/24. AUTOMATIC EDGER recommends to trial zyprexa 2.5mg q24h prn for distressing paranoia x 14 days. Nursing with no acute concerns at this time. Nursing to update provider of changes or concerns. 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 Medical history is remarkable for Parkinson's disease, hypothyroidism, unsteady gait, OA, depression, cognitive impairment Patient went out to neurology for f/u for parkinson's with psychosis and siallorhea. Plans to initiate a botox PA for left parotid to yx siallorhea. Otherwise continue current treatment. f/u 06/19/24. Patient was found to have CAP on 02/19 and recovered without incident s/p tx with 7 day course doxycycline and z-franco Patient followed by [facility] with most recent visit on 03/18/24. [facility] recommends to trial zyprexa 2.5mg q24h prn for distressing paranoia x 14 days. Her daughter would like her closer to [place] and she is on the waiting list for LTC at [facility]. Today patient is sitting in wheelchair in dining area eating lunch in NAD. Mostly samoan speaking MOLST: DNR, DNI, okay to transfer to hospital - signed 05/02/21; HCP invoked 05/18/21 [facility] [address] [facility], [address], [place], [address], [facility] 04/01/2024 18:55:51 04/10/2024 text/html This is a 74 yof being seen for acute visit Medical history is remarkable for Parkinson's disease, hypothyroidism, unsteady gait, OA, depression, cognitive impairment Patient followed by [facility] with most recent visit on 04/09/24. [facility] recommends to document o/n awakenings, sx emerges. HD will re-evaluate pt and med regimen. Suggest sleep log x [address] in HD binder when completed. [facility] recommends to trial zyprexa 2.5mg q24h prn for distressing paranoia x 14 days. NN 04/09, Resident alert and oriented at baseline, able to make needs known. Resident in wheelchair for breakfast, eating breakfast in dining room. Resident refused lunch and dinner. Resident in bed sleeping for majority of the rest of the day. Refused 1700 medications. Resident asleep for PM medications and did not want to wake up enough to take PO medications. Plan of care ongoing. Nursing with no acute concerns at this time. Nursing to update provider of changes or concerns. Patient seen lying in bed in NAD. Normal respiratory effort [facility] [address] [facility], [address], [place], [address], [facility] 04/10/2024 11:21:03 04/18/2024 text/html This is a 74 yof being seen for acute visit Medical history is remarkable for Parkinson's disease, hypothyroidism, unsteady gait, OA, depression, cognitive impairment Patient followed by [facility] with most recent visit on 04/17/24. AUTOMATIC EDGER recommends if private room is available consider moving patient to private room. Suggest adding zyprexa to 17.5mg qHS for psychosis. Suggest adding zyprexa 2.5mg po prn q24h x 14 days for psychosis. If pattern of sx and prn use emerges, HD will re-evaluate pt and med regimen, consider GDR WBTN in future r/t risks of polypharmacy Nursing with no acute concerns at this time. Nursing to update provider of changes or concerns. Patient seen lying in bed in NAD. 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 Medical history is remarkable for Parkinson's disease, hypothyroidism, unsteady gait, OA, depression, cognitive impairment Mirtazapine dose was lowered from 15 mg to 7.5 mg on 02/17/23 due to qTc elevation. She had a pending EKG to assess her QTC, EKG repeated 03/10/23, QTC 388 She sustained unwitnessed falls without injury on 04/05/23, 06/29/23, 10/27/23 She has complained of knee pain which lidocaine patches have been helpful. Patient went out to neurology for f/u for parkinson's with psychosis and siallorhea. Plans to initiate a botox PA for left parotid to yx siallorhea. Otherwise continue current treatment. f/u 06/19/24. Patient was found to have CAP on 02/19 and recovered without incident s/p tx with 7 day course doxycycline and z-franco Patient followed by [facility] with most recent visit on 04/17/24. AUTOMATIC EDGER recommends if private room is available consider moving patient to private room. Suggest adding zyprexa to 17.5mg qHS for psychosis. Suggest adding zyprexa 2.5mg po prn q24h x 14 days for psychosis. If pattern of sx and prn use emerges, HD will re-evaluate pt and med regimen, consider GDR WBTN in future r/t risks of polypharmacy. 14 day trial zyprexa ended on 05/02/24 NN 04/09, Resident alert and oriented at baseline, able to make needs known. Resident in wheelchair for breakfast, eating breakfast in dining room. Resident refused lunch and dinner. Resident in bed sleeping for majority of the rest of the day. Refused 1700 medications. Resident asleep for PM medications and did not want to wake up enough to take PO medications. Plan of care ongoing. Patient was seen by podiatry on 12/04/23 for routine nail care. Nails were trimmed and debrided to length and thickness of 2mm. f/u prn but no sooner than 60 days Patient was seen for routine prophylactic dental care on 01/16/24. Patient was seen by OD on 05/01/2024 for routine eye care. 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 Overall she has had no acute medical hospitalizations over the last year Patient is okay to discharge to [facility] with meds and services. DTR to transport patient to facility Today patient is sitting in wheelchair in dining area eating lunch in NAD. Mostly samoan speaking MOLST: DNR, DNI, okay to transfer to hospital - signed 05/02/21; HCP invoked 05/18/21 Leilani[facility]Lambert [facility] [address] [facility], [address], [place], [address], [facility] 05/06/2024 10:45:23 OBGyn Episode No OBEpisode recorded.
--- OUTSIDE RECORDS SUMMARY | 2025-08-26 13:40 | XMS_ITS | Encounter Summary ---
Author Organization [employer] Address [address] [place] [address] Care Team Providers Care Hand Suture Winder Name Role Phone Amber Lovelace MD Primary Care Provid er Encounter Details Date Type Department Care Team (Late st Contact Info) Description 10/08/[address] [facility] - Main Lab [address] [facility] [place] [place] [address] Aroldo Dejesus MD [address] [place] [address] Other fatigue Social History Tobacco Use Types [...] LAB CHEMISTRY METHOD 10/08/2024 11:19 AM EST [facility] Blood Venous blood specimen / Unknown Venipuncture / Unknown 10/08/2024 9:10 AM EST 10/08/2024 9:37 AM EST us Aroldo Dejesus MD LAB BLOOD ORDERABLES Final Resu lt Performing Organization Address [facility]/ZIP Co de Phone Number [facility] [address] [place] [address], [place] [phone] * Free thyroxine with reflex to free triiodothyronine (10/08/2024 9:10 AM EST) Free T4 1.01 0.70 - 1.80 ng/dL LAB CHEMISTRY METHOD 10/08/2024 10:51 AM EST [facility] Blood Venous blood specimen / Unknown Venipuncture / Unknown 10/08/2024 9:10 AM EST 10/08/2024 9:37 AM EST us Aroldo Dejesus MD LAB BLOOD ORDERABLES Final Resu lt Performing Organization Address City/[facility]/ZIP Co de Phone Number [facility] [address] [place] [address], [place] [phone] * Ammonia (10/08/2024 9:10 AM EST) Ammonia 23 11 - 35 mcmol/L LAB CHEMISTRY METHOD 10/08/2024 10:15 AM EST [facility] Blood Venous blood specimen / Unknown Venipuncture / Unknown 10/08/2024 9:10 AM EST 10/08/2024 9:37 AM EST us Aroldo Dejesus MD LAB BLOOD ORDERABLES Final Resu lt Performing Organization Address City/[facility]/ZIP Co de Phone Number [facility] [address] [place] [address], [place] [phone] * Magnesium (10/08/2024 9:10 AM EST) Magnesium 2.3 1.9 - 2.6 mg/dL LAB CHEMISTRY METHOD 10/08/2024 10:18 AM EST [facility] Blood Venous blood specimen / Unknown Venipuncture / Unknown 10/08/2024 9:10 AM EST 10/08/2024 9:37 AM EST us Aroldo Dejesus MD LAB BLOOD ORDERABLES Final Resu lt Performing Organization Address [facility] Co de Phone Number [facility] [address] [place] [address], [place] [phone] * (ABNORMAL) Thyroid stimulating hormone with reflex to free t4 and free t3 (10/08/2024 9:10 AM EST) [facility] TSH 7.99(H) 0.40 - 4.00 mcIU/mL LAB CHEMISTRY METHOD 10/08/2024 10:25 AM EST [facility] Blood Venous blood specimen / Unknown Venipuncture / Unknown 10/08/2024 9:10 AM EST 10/08/2024 9:37 AM EST us Aroldo Dejesus MD LAB BLOOD ORDERABLES Final Resu lt Performing Organization Address City/[facility]/ZIP Co de Phone Number [facility] [address] [place] [address], [place] [phone] * (ABNORMAL) Comprehensive metabolic panel (10/08/2024 9:10 AM EST) Pathologist [facility] Sodium 142 133 - 145 mmol/L LAB [...] [facility] Comment:Calculation based on the Chronic Kidney Disease Epidemiology Collaboration (CKD-EPI) equation refit without adjustment for race. BUN/Creatinine Ratio 21.3 LAB [...] Resu lt [facility] [address] [place] [address], * (ABNORMAL) Complete blood count (10/08/2024 9:10 [...] LAB HEMETOLOGY METHOD 10/08/2024 10:31 AM EST [facility] MCHC 30.9(L) 32.0 - 37.0 g/dL LAB HEMETOLOGY METHOD 10/08/2024 10:31 AM EST [facility] RDW 12.9 11.0 - 15.0 % LAB HEMETOLOGY METHOD 10/08/2024 10:31 AM EST [facility] Platelets 239 130 - 400 K/mcL LAB HEMETOLOGY METHOD 10/08/2024 10:31 AM [facility] MPV 9.6 7.0 - 11.0 FL LAB HEMETOLOGY METHOD 10/08/2024 10:31 AM [facility] NRBC 0.0 <1.0 % LAB HEMETOLOGY METHOD 10/08/2024 10:31 AM EST [facility] NRBC Absolute 0.00 <0.10 K/mcL LAB HEMETOLOGY METHOD 10/08/2024 10:31 AM [facility] Blood Venous blood specimen / Unknown Venipuncture / Unknown 10/08/2024 9:10 AM EST 10/08/2024 9:37 AM EST us Aroldo Dejesus MD LAB BLOOD ORDERABLES Final Resu lt [facility] [address] [place] [address], documented in this encounter Visit Diagnoses Diagnosis Other fatigue documented in this encounter Care Teams Hand Suture Winder Relationship Specialty Start Date End Date Amber Lovelace MD [address] [facility] [address] [place] [address] PCP - General Obstetrics and Gynecology 10/11/24 documented as of this encounter
--- OUTSIDE RECORDS SUMMARY | 2025-08-26 13:40 | XMS_ITS | Encounter Summary ---
Author Organization [employer] Address [address] [place] [address] Care Team Providers Care Entry Level Software Developer Name Role Phone Amber Lovelace MD Primary Care Provid er Encounter Details Date Type Department Care Team (Late st Contact Info) Description 08/25/2025 Lab Requisition [facility] - Main Lab [address] [place] [address] Aroldo Dejesus MD [address] [place] [address] Altered mental status, unspecified Social History Tobacco [...] 6:16 AM EDT Altered mental status, unspecified documented in this encounter Results * (ABNORMAL) Complete blood count (08/25/2025 6:16 AM EDT) WBC 6.9 4.8 - 10.8 K/mcL LAB HEMETOLOGY METHOD 08/25/2025 12:04 PM EDT [facility] RBC 3.90 3.80 - 4.80 M/mcL LAB HEMETOLOGY METHOD 08/25/2025 12:04 PM EDT [facility] Hemoglobin 11.5 11.5 - 16.0 g/dL LAB HEMETOLOGY METHOD 08/25/2025 12:04 PM EDT [facility] Hematocrit 38.6 35.0 - 47.0 % LAB HEMETOLOGY METHOD 08/25/2025 12:04 PM EDT [facility] MCV 98.5(H) 79.0 - 98.0 FL LAB HEMETOLOGY METHOD 08/25/2025 12:04 PM EDT [facility] MCH 29.3 27.0 - 32.0 pcg LAB HEMETOLOGY METHOD 08/25/2025 12:04 PM EDT [facility] MCHC 29.8(L) 32.0 - 37.0 g/dL LAB HEMETOLOGY METHOD 08/25/2025 12:04 PM EDT [facility] RDW 13.3 11.0 - 15.0 % LAB HEMETOLOGY METHOD 08/25/2025 12:04 PM EDT [facility] Platelets 251 130 - 400 K/mcL LAB HEMETOLOGY METHOD 08/25/2025 12:04 PM EDT [facility] MPV 10.2 7.0 - 11.0 FL LAB HEMETOLOGY METHOD 08/25/2025 12:04 PM EDT [facility] NRBC 0.0 <1.0 % LAB HEMETOLOGY METHOD 08/25/2025 12:04 PM EDT [facility] NRBC Absolute 0.00 <0.10 K/mcL LAB HEMETOLOGY METHOD 08/25/2025 12:04 PM EDT [facility] Blood Venous blood specimen / Unknown Venipuncture / Unknown 08/25/2025 6:16 AM EDT 08/25/2025 10:08 AM EDT us Aroldo Dejesus MD LAB BLOOD ORDERABLES Final Resu lt [facility] [address] [place] [address], documented in this encounter Visit Diagnoses Diagnosis Altered mental status, unspecified documented in this encounter Care Teams Entry Level Software Developer Relationship Specialty Start Date End Date Amber Lovelace MD [address] [facility] [address] [place] [address] PCP - General Obstetrics and Gynecology 10/11/24 documented as of this encounter
== END 2025-08-26 13:05 | disposition home or self-care (01) ==
LOC: HO.HSMS 12:32
PROVIDERS: PCP Internal Medicine; Visit Provider Psychiatry & Neurology Neurology
DX: K11.7 Disturbances of salivary secretion (principal)
CPT/HCPCS: 64611

== ENCOUNTER → 2025-08-26 12:32 | Outpatient (BNVA) | payer MEDICARE, MEDICAID, SELFPAY | PROVIDERS: PCP Internal Medicine; Visit Provider Psychiatry & Neurology Neurology | DX: K11.7 Disturbances of salivary secretion (principal) | CPT/HCPCS: 64611; 99211; J0585 ==